=== PATIENT | male | born 1935 | race Caucasian/White ===

== ENCOUNTER 2016-08-30 16:31 | Inpatient (IN) | payer MEDICARE, OTHER ==
[~2016-08-30] VITALS: Ht 165.1 cm; Wt 83.6 kg
[~2016-08-30 16:31] MED LIST: CLOP75 PO; METO25 PO; OMEP20 PO
[2016-08-30 17:37] LABS: BASOPHILS % (AUTO) 0.2 % (0.0-2.0); EOSINOPHILS % (AUTO) 2.9 % (1.0-6.0); HEMATOCRIT 35.6 % (41-53); LYMPHOCYTES # (AUTO) 1.3 K/uL (1.0-4.8); LYMPHOCYTES % (AUTO) 9.2 % (22.0-44.0); MEAN CORPUSCULAR HEMOGLOBIN 31.4 pg (26.0-34.0); MEAN CORPUSCULAR HGB CONC 33.6 G/dL (31.0-37.0); MEAN CORPUSCULAR VOLUME 93 fL (80-100); MONOCYTES # (AUTO) 1.1 K/uL (0.1-1.0); MONOCYTES % (AUTO) 7.8 % (2.0-9.0); NEUTROPHILS # (AUTO) 11.2 K/uL (1.8-7.7); NEUTROPHILS % (AUTO) 79.9 % (40.0-70.0); PLATELET COUNT (AUTO) 249 K/uL (150-450); RED BLOOD CELL COUNT(AUTO) 3.81 MIL/uL (4.50-5.90); RED CELL DISTRIBUTION WIDTH 14.6 % (11.5-14.5)
[2016-08-30 17:49] LABS: CALCIUM, TOTAL 8.8 mg/dL (8.8-10.5); CREATININE 2.34 mg/dL (0.60-1.30); POTASSIUM 5.1 mmol/L (3.5-5.1)
[2016-08-30 17:55] LABS: ALBUMIN 3.7 g/dL (3.4-5.0); BILIRUBIN,TOTAL 1.3 mg/dL (0.1-1.0); TOTAL PROTEIN, SERUM 7.7 g/dL (6.4-8.2)
[2016-08-30] MEDS ORDERED: SODIUM CHLORIDE 0.9% 1,000 ML IV ONE (19:45)
[2016-08-30] MEDS ORDERED: CefTRIAXone 1 GM/DEXTROSE 50 ML IV ONE (19:45)
[2016-08-30] MEDS ORDERED: AZITHROMYCIN 500 MG/NS 250 ML IV ONE (19:45)
[2016-08-30 20:15] LABS: INFLUENZA TYPE B NEGATIVE FOR TYPE B (NEGATIVE)
[2016-08-30] MEDS ORDERED: 0.9% SODIUM CHLORIDE 10 ML SYRINGE IVP PRN (20:30)
[2016-08-30] MEDS ORDERED: ACETAMINOPHEN 325 MG TABLET PO PRN (20:30)
[2016-08-30] MEDS ORDERED: MORPHINE SULFATE 2 MG/ML SYRINGE IVP ONE (20:30)
[2016-08-30] MEDS ORDERED: ONDANSETRON HCL 4 MG/2 ML VIAL IVP PRN (20:30)
[2016-08-31] MEDS ORDERED: OxyCODONE HCL/ACETAMINOPHEN 5-325 MG TABLET PO PRN ×2 (02:45)
[2016-08-31] MEDS ORDERED: ONDANSETRON HCL 4 MG/2 ML VIAL IVP PRN (02:45)
[2016-08-31] MEDS ORDERED: MAGNESIUM HYDROXIDE SUSPENSION 30 ML UDCUP PO PRN (02:45)
[2016-08-31] MEDS ORDERED: ACETAMINOPHEN 325 MG TABLET PO PRN (02:45)
[2016-08-31] MEDS ORDERED: 0.9% SODIUM CHLORIDE 10 ML SYRINGE IVP PRN (02:45)
[2016-08-31] MEDS ORDERED: AZITHROMYCIN 250 MG in SODIUM CHLORIDE 0.9% 150 ML IV ONE (02:45)
[2016-08-31] MEDS: METOPROLOL TARTRATE 25 MG TABLET PO SCH ×3 (03:12→20:11)
[2016-08-31] MEDS: DOCUSATE SODIUM 100 MG CAPSULE PO SCH ×3 (03:12→20:11)
[2016-08-31 08:23] VITALS: BP 143/86
[2016-08-31] MEDS: PANTOPRAZOLE SODIUM 40 MG/VIAL IVP SCH (10:26)
[2016-08-31] MEDS: CLOPIDOGREL BISULFATE 75 MG TABLET PO SCH (10:26)
[2016-08-31 11:10] VITALS: BP 144/66
[2016-08-31] MEDS ORDERED: -PHARMACY VACCINE NOTE- MISC ONE ×2 (12:30)
[2016-08-31 15:24] VITALS: BP 138/71
[2016-08-31] MEDS ORDERED: SODIUM CHLORIDE 0.9% 500 ML IV ONE (15:36)
[2016-08-31] MEDS ORDERED: AZITHROMYCIN 250 MG in SODIUM CHLORIDE 0.9% 150 ML IV SCH (16:00)
[2016-08-31 19:34] VITALS: BP 153/78
[2016-08-31] MEDS ORDERED: CefTRIAXone 1 GM/DEXTROSE 50 ML IV SCH (20:00)
[2016-08-31] MEDS: GuaiFENesin/D-METHORPHAN [SUGAR-FREE] 200-20MG/10 ML SYRUP UDCUP PO PRN (22:38)
[2016-08-31 23:39] VITALS: BP 130/63
[2016-09-01 04:18] VITALS: BP 145/73
[2016-09-01] MEDS: GuaiFENesin/D-METHORPHAN [SUGAR-FREE] 200-20MG/10 ML SYRUP UDCUP PO PRN ×2 (05:44→10:21)
[2016-09-01 06:04] LABS: BASOPHILS % (AUTO) 0.5 % (0.0-2.0); EOSINOPHILS % (AUTO) 4.7 % (1.0-6.0); HEMATOCRIT 35.9 % (41-53); HEMOGLOBIN 11.6 g/dL (13.5-17.5); LYMPHOCYTES # (AUTO) 1.7 K/uL (1.0-4.8); LYMPHOCYTES % (AUTO) 16.8 % (22.0-44.0); MEAN CORPUSCULAR HEMOGLOBIN 30.6 pg (26.0-34.0); MEAN CORPUSCULAR HGB CONC 32.3 G/dL (31.0-37.0); MEAN CORPUSCULAR VOLUME 95 fL (80-100); MONOCYTES # (AUTO) 1.2 K/uL (0.1-1.0); MONOCYTES % (AUTO) 11.4 % (2.0-9.0); NEUTROPHILS # (AUTO) 6.9 K/uL (1.8-7.7); NEUTROPHILS % (AUTO) 66.6 % (40.0-70.0); PLATELET COUNT (AUTO) 242 K/uL (150-450); RED BLOOD CELL COUNT(AUTO) 3.78 MIL/uL (4.50-5.90); RED CELL DISTRIBUTION WIDTH 14.6 % (11.5-14.5); WHITE BLOOD COUNT (AUTO) 10.4 K/uL (4.5-11.0)
[2016-09-01 06:25] LABS: CALCIUM, TOTAL 8.3 mg/dL (8.8-10.5); CREATININE 1.69 mg/dL (0.60-1.30); POTASSIUM 4.6 mmol/L (3.5-5.1)
[2016-09-01 07:43] VITALS: BP 166/72
[2016-09-01] MEDS: CLOPIDOGREL BISULFATE 75 MG TABLET PO SCH (08:31)
[2016-09-01] MEDS: PANTOPRAZOLE SODIUM 40 MG/VIAL IVP SCH (08:31)
[2016-09-01] MEDS: METOPROLOL TARTRATE 25 MG TABLET PO SCH (08:31)
[2016-09-01] MEDS: DOCUSATE SODIUM 100 MG CAPSULE PO SCH (08:31)
[2016-09-01 11:00] VITALS: BP 146/73
[2016-09-01] MEDS ORDERED: LEVO500 PO (14:37)
== END 2016-09-01 15:00 | disposition home or self-care (01) | DRG 871 ==
LOC: EMS 16:39 → 6N 08-31 05:17
PROVIDERS: ADMIT Internal Medicine; ATTEND Internal Medicine
DX: A41.9 Sepsis, unspecified organism (principal); J18.9 Pneumonia, unspecified organism; N17.9 Acute kidney failure, unspecified; E03.9 Hypothyroidism, unspecified; E11.9 Type 2 diabetes mellitus without complications; E78.00 Pure hypercholesterolemia, unspecified; E86.0 Dehydration; J40 Bronchitis, not specified as acute or chronic; I10 Essential (primary) hypertension; I25.10 Atherosclerotic heart disease of native coronary artery without angina pectoris; R62.7 Adult failure to thrive; Z82.49 Family history of ischemic heart disease and other diseases of the circulatory system; Z83.3 Family history of diabetes mellitus; Z79.01 Long term (current) use of anticoagulants; Z79.899 Other long term (current) drug therapy; Z95.5 Presence of coronary angioplasty implant and graft
CPT/HCPCS: 71250; 87040; 87804; 93005; 96365; 96368; 96375; 99285; C9113; J0456; J0696; J2270; J7030; J7040; J7050

== ENCOUNTER 2017-05-26 08:47 | Inpatient (IN) | payer MEDICARE, OTHER ==
[~2017-05-26] VITALS: Ht 165.1 cm; Wt 86.0 kg
[~2017-05-26 08:47] MED LIST changes: +LEVO500 PO
[2017-05-26] MEDS ORDERED: SODIUM CHLORIDE 0.9% 1,000 ML IV ONE ×3 (09:30→12:45)
[2017-05-26 09:43] LABS: EOSINOPHILS # (AUTO) 0.07 K/uL (0.00-0.70); EOSINOPHILS % (AUTO) 0.42 % (1.0-6.0); HEMATOCRIT 33.9 % (41-53); HEMOGLOBIN 11.2 g/dL (13.5-17.5); LYMPHOCYTES # (AUTO) 0.9 K/uL (1.0-4.8); LYMPHOCYTES % (AUTO) 5.4 % (22.0-44.0); MEAN CORPUSCULAR HGB CONC 33.1 G/dL (31.0-37.0); MEAN CORPUSCULAR VOLUME 94 fL (80-100); MONOCYTES # (AUTO) 1.2 K/uL (0.1-1.0); NEUTROPHILS # (AUTO) 15.4 K/uL (1.8-7.7); PLATELET COUNT (AUTO) 168 K/uL (150-450); RED BLOOD CELL COUNT(AUTO) 3.61 MIL/uL (4.50-5.90); WHITE BLOOD COUNT (AUTO) 17.6 K/uL (4.5-11.0)
[2017-05-26 09:51] LABS: NEUTROPHILS % (AUTO) 87.3 % (40.0-70.0)
[2017-05-26 09:54] LABS: CALCIUM, TOTAL 8.4 mg/dL (8.8-10.5); CREATININE 2.17 mg/dL (0.60-1.30); POTASSIUM 4.2 mmol/L (3.5-5.1)
[2017-05-26 10:00] LABS: ALBUMIN 3.4 g/dL (3.4-5.0); BILIRUBIN,TOTAL 1.6 mg/dL (0.1-1.0); TOTAL PROTEIN, SERUM 6.8 g/dL (6.4-8.2)
[2017-05-26] MEDS ORDERED: CefTRIAXone 1 GM/DEXTROSE 50 ML IV ONE (12:15)
[2017-05-26 12:37] LABS: GLUCOSE, URINE (UA) >=1000 mg/dL (NEGATIVE); KETONES,URINE NEGATIVE (NEGATIVE); LEUKOCYTE ESTERASE ,URINE TRACE (NEGATIVE); OCCULT BLOOD,URINE NEGATIVE (NEGATIVE); PROTEIN,URINE NEGATIVE (NEGATIVE)
[2017-05-26 12:44] LABS: APPEARANCE,URINE HAZY (CLEAR)
[2017-05-26] MEDS ORDERED: ONDANSETRON HCL 4 MG/2 ML VIAL IVP PRN ×2 (12:45→22:30)
[2017-05-26] MEDS ORDERED: ACETAMINOPHEN 325 MG TABLET PO PRN (12:45)
[2017-05-26 12:52] LABS: RBC,URINE 0-2 /HPF (0-2); SQUAMOUS EPITHELIAL CELL,UR Few /LPF (None Seen)
[2017-05-26 13:38] LABS: GLUCOSE,POINT OF CARE 204 MG/DL (70-110)
[2017-05-26 14:21] VITALS: BP 140/78
[2017-05-26 17:22] LABS: GLUCOSE COMMENT 1 Received Meds; GLUCOSE,POINT OF CARE 212 MG/DL (70-110)
[2017-05-26 19:31] VITALS: BP 177/76
[2017-05-26 20:53] VITALS: BP 154/77
[2017-05-26] MEDS: METOPROLOL TARTRATE 25 MG TABLET PO SCH (21:16)
[2017-05-26] MEDS: CLOPIDOGREL BISULFATE 75 MG TABLET PO SCH (21:16)
[2017-05-26 21:27] LABS: GLUCOSE,POINT OF CARE 217 MG/DL (70-110)
[2017-05-26] MEDS ORDERED: OxyCODONE HCL/ACETAMINOPHEN 5-325 MG TABLET PO PRN ×2 (22:30)
[2017-05-26] MEDS ORDERED: 0.9% SODIUM CHLORIDE 10 ML SYRINGE IVP PRN (22:30)
[2017-05-26] MEDS ORDERED: DEXTROSE 50%-WATER 25 GM/50 ML SYRINGE IVP PRN (22:45)
[2017-05-26 23:29] VITALS: BP 158/74
[2017-05-26] MEDS: DOCUSATE SODIUM 100 MG CAPSULE PO SCH (23:39)
[2017-05-26] MEDS: INSULIN ASPART 100 UNITS/ML SQ PRN (23:40)
[2017-05-27 04:51] VITALS: BP 173/73
[2017-05-27] MEDS: METOPROLOL TARTRATE 25 MG TABLET PO SCH ×2 (05:22→19:53)
[2017-05-27 06:18] LABS: GLUCOSE,POINT OF CARE 132 MG/DL (70-110)
[2017-05-27 07:04] LABS: BASOPHILS % (AUTO) 0.4 % (0.0-2.0); EOSINOPHILS % (AUTO) 1.5 % (1.0-6.0); HEMATOCRIT 33.5 % (41-53); HEMOGLOBIN 11.4 g/dL (13.5-17.5); LYMPHOCYTES # (AUTO) 1.6 K/uL (1.0-4.8); LYMPHOCYTES % (AUTO) 10.6 % (22.0-44.0); MEAN CORPUSCULAR HEMOGLOBIN 31.7 pg (26.0-34.0); MEAN CORPUSCULAR VOLUME 93 fL (80-100); MONOCYTES # (AUTO) 1.4 K/uL (0.1-1.0); MONOCYTES % (AUTO) 9.5 % (2.0-9.0); NEUTROPHILS # (AUTO) 11.8 K/uL (1.8-7.7); PLATELET COUNT (AUTO) 171 K/uL (150-450); RED BLOOD CELL COUNT(AUTO) 3.59 MIL/uL (4.50-5.90); RED CELL DISTRIBUTION WIDTH 14.2 % (11.5-14.5); WHITE BLOOD COUNT (AUTO) 15.2 K/uL (4.5-11.0)
[2017-05-27 07:21] VITALS: BP 155/73
[2017-05-27 07:23] LABS: CALCIUM, TOTAL 7.9 mg/dL (8.8-10.5); CREATININE 1.52 mg/dL (0.60-1.30); POTASSIUM 3.7 mmol/L (3.5-5.1)
[2017-05-27] MEDS: CLOPIDOGREL BISULFATE 75 MG TABLET PO SCH (08:34)
[2017-05-27] MEDS: DOCUSATE SODIUM 100 MG CAPSULE PO SCH ×2 (08:34→19:53)
[2017-05-27] MEDS: PANTOPRAZOLE SODIUM 40 MG/VIAL IVP SCH (08:34)
[2017-05-27 11:03] LABS: GLUCOSE COMMENT 1 Received Meds; GLUCOSE,POINT OF CARE 234 MG/DL (70-110)
[2017-05-27 11:27] VITALS: BP 167/72
[2017-05-27] MEDS ORDERED: HydrALAZINE HCL 20 MG/ML VIAL IVP PRN (11:45)
[2017-05-27] MEDS: CefTRIAXone 1 GM/DEXTROSE 50 ML IV SCH (11:50)
[2017-05-27] MEDS: INSULIN ASPART 100 UNITS/ML SQ PRN ×3 (11:54→19:55)
[2017-05-27] MEDS: HydrALAZINE HCL 10 MG TABLET PO PRN ×3 (12:26→23:00)
[2017-05-27 15:13] VITALS: BP 157/75
[2017-05-27 19:30] VITALS: BP 151/72
[2017-05-27 20:59] LABS: GLUCOSE,POINT OF CARE 191 MG/DL (70-110)
[2017-05-27 22:35] LABS: GLUCOSE COMMENT 1 Received Meds; GLUCOSE,POINT OF CARE 232 MG/DL (70-110)
[2017-05-27 23:01] VITALS: BP 152/71
[2017-05-28 04:51] VITALS: BP 167/76
[2017-05-28] MEDS: HydrALAZINE HCL 10 MG TABLET PO PRN ×3 (04:53→12:50)
[2017-05-28] MEDS: INSULIN ASPART 100 UNITS/ML SQ PRN ×4 (05:39→21:11)
[2017-05-28 06:51] LABS: GLUCOSE COMMENT 1 Received Meds; GLUCOSE,POINT OF CARE 172 MG/DL (70-110)
[2017-05-28 07:09] VITALS: BP 190/83
[2017-05-28] MEDS: PANTOPRAZOLE SODIUM 40 MG/VIAL IVP SCH (09:11)
[2017-05-28] MEDS: CLOPIDOGREL BISULFATE 75 MG TABLET PO SCH (09:11)
[2017-05-28] MEDS: DOCUSATE SODIUM 100 MG CAPSULE PO SCH ×2 (09:11→20:02)
[2017-05-28] MEDS: METOPROLOL TARTRATE 25 MG TABLET PO SCH ×2 (09:11→20:02)
[2017-05-28 11:10] VITALS: BP 177/76
[2017-05-28] MEDS: CefTRIAXone 1 GM/DEXTROSE 50 ML IV SCH (12:47)
[2017-05-28 14:28] LABS: GLUCOSE COMMENT 1 Received Meds; GLUCOSE,POINT OF CARE 257 MG/DL (70-110)
[2017-05-28 15:10] VITALS: BP 166/72
[2017-05-28] MEDS: LOSARTAN POTASSIUM 50 MG TABLET PO SCH (16:46)
[2017-05-28 18:38] LABS: GLUCOSE COMMENT 1 Received Meds; GLUCOSE,POINT OF CARE 326 MG/DL (70-110)
[2017-05-28 19:10] VITALS: BP 147/70
[2017-05-28 23:34] VITALS: BP 145/65
[2017-05-29 01:07] LABS: GLUCOSE COMMENT 1 Juice/Food/D50 Given; GLUCOSE,POINT OF CARE 325 MG/DL (70-110)
[2017-05-29 04:00] VITALS: BP 162/71
[2017-05-29] MEDS: HydrALAZINE HCL 10 MG TABLET PO PRN ×3 (04:09→16:18)
[2017-05-29] MEDS: INSULIN ASPART 100 UNITS/ML SQ PRN ×3 (05:21→16:48)
[2017-05-29 06:32] LABS: GLUCOSE COMMENT 1 Juice/Food/D50 Given; GLUCOSE,POINT OF CARE 203 MG/DL (70-110)
[2017-05-29 07:33] LABS: BASOPHILS % (AUTO) 0.6 % (0.0-2.0); HEMATOCRIT 33.8 % (41-53); HEMOGLOBIN 11.4 g/dL (13.5-17.5); LYMPHOCYTES # (AUTO) 1.5 K/uL (1.0-4.8); LYMPHOCYTES % (AUTO) 16.6 % (22.0-44.0); MEAN CORPUSCULAR HEMOGLOBIN 31.4 pg (26.0-34.0); MEAN CORPUSCULAR HGB CONC 33.8 G/dL (31.0-37.0); MEAN CORPUSCULAR VOLUME 93 fL (80-100); MONOCYTES % (AUTO) 11.2 % (2.0-9.0); NEUTROPHILS # (AUTO) 6.2 K/uL (1.8-7.7); NEUTROPHILS % (AUTO) 68.6 % (40.0-70.0); PLATELET COUNT (AUTO) 209 K/uL (150-450); RED BLOOD CELL COUNT(AUTO) 3.64 MIL/uL (4.50-5.90); RED CELL DISTRIBUTION WIDTH 13.9 % (11.5-14.5)
[2017-05-29 07:47] LABS: CALCIUM, TOTAL 8.2 mg/dL (8.8-10.5); CREATININE 1.62 mg/dL (0.60-1.30); POTASSIUM 4.2 mmol/L (3.5-5.1)
[2017-05-29 08:00] VITALS: BP 178/87
[2017-05-29] MEDS: PANTOPRAZOLE SODIUM 40 MG/VIAL IVP SCH (08:18)
[2017-05-29] MEDS: LOSARTAN POTASSIUM 50 MG TABLET PO SCH (08:18)
[2017-05-29] MEDS: METOPROLOL TARTRATE 25 MG TABLET PO SCH (08:18)
[2017-05-29] MEDS: DOCUSATE SODIUM 100 MG CAPSULE PO SCH (08:18)
[2017-05-29] MEDS: CLOPIDOGREL BISULFATE 75 MG TABLET PO SCH (08:22)
[2017-05-29 11:02] LABS: GLUCOSE COMMENT 1 Received Meds; GLUCOSE,POINT OF CARE 239 MG/DL (70-110)
[2017-05-29 11:31] VITALS: BP 173/75
[2017-05-29] MEDS: CefTRIAXone 1 GM/DEXTROSE 50 ML IV SCH (12:28)
[2017-05-29] MEDS ORDERED: CEPH500 PO (13:47)
[2017-05-29] MEDS ORDERED: LOSA50TA37 PO (13:47)
[2017-05-29] MEDS ORDERED: DSS100 PO (13:51)
[2017-05-29 15:45] VITALS: BP 158/79
[2017-05-29 16:53] LABS: GLUCOSE,POINT OF CARE 271 MG/DL (70-110)
== END 2017-05-29 17:07 | disposition home health service (06) | DRG 872 ==
LOC: EMS 08:52 → 6N 13:55
PROVIDERS: ADMIT Internal Medicine; ATTEND Internal Medicine
DX: A41.9 Sepsis, unspecified organism (principal); N17.9 Acute kidney failure, unspecified; E11.65 Type 2 diabetes mellitus with hyperglycemia; E87.1 Hypo-osmolality and hyponatremia; E86.0 Dehydration; N39.0 Urinary tract infection, site not specified; I10 Essential (primary) hypertension; K59.00 Constipation, unspecified; I25.10 Atherosclerotic heart disease of native coronary artery without angina pectoris; E78.00 Pure hypercholesterolemia, unspecified; E03.9 Hypothyroidism, unspecified; Z79.01 Long term (current) use of anticoagulants; Z79.899 Other long term (current) drug therapy
CPT/HCPCS: 82962; 87086; 96361; 96365; 97116; 97162; 99285; C9113; J0696; J7030

== ENCOUNTER 2017-08-13 19:50 | Inpatient (IN) | payer MEDICARE, OTHER ==
[~2017-08-13] VITALS: Ht 170.2 cm; Wt 84.0 kg
[~2017-08-13 19:50] MED LIST changes: +CEPH500 PO; +DSS100 PO; -LEVO500 PO; +LOSA50TA37 PO; -METO25 PO
[2017-08-13 21:48] LABS: GLUCOSE,POINT OF CARE 138 MG/DL (70-110)
[2017-08-13] MEDS ORDERED: CefTRIAXone 1 GM/DEXTROSE 50 ML IV ONE (23:15)
[2017-08-13] MEDS ORDERED: MethylPREDNISolone SOD SUCC 125 MG/2 ML VIAL IVP ONE (23:15)
[2017-08-13] MEDS ORDERED: ACETAMINOPHEN 500 MG TABLET PO ONE (23:15)
[2017-08-13] MEDS ORDERED: OSELTAMIVIR PHOSPHATE 75 MG CAPSULE PO ONE (23:15)
[2017-08-13] MEDS ORDERED: IPRATROPIUM BROMIDE 0.5 MG/2.5 ML NEB SOLUTION NEB ONE (23:15)
[2017-08-13] MEDS ORDERED: ALBUTEROL SULFATE 2.5 MG/0.5 ML NEB SOLUTION NEB ONE (23:15)
[2017-08-13] MEDS ORDERED: ACETAMINOPHEN 325 MG TABLET PO PRN (23:45)
[2017-08-13] MEDS ORDERED: 0.9% SODIUM CHLORIDE 10 ML SYRINGE IVP PRN (23:45)
[2017-08-13] MEDS ORDERED: ONDANSETRON HCL 4 MG/2 ML VIAL IVP PRN (23:45)
[2017-08-13 23:51] LABS: BASOPHILS # (AUTO) 0.04 K/uL (0.00-0.20); BASOPHILS % (AUTO) 0.6 % (0.0-2.0); EOSINOPHILS # (AUTO) 0.19 K/uL (0.00-0.70); EOSINOPHILS % (AUTO) 2.47 % (1.0-6.0); HEMATOCRIT 34.2 % (41-53); HEMOGLOBIN 11.6 g/dL (13.5-17.5); LYMPHOCYTES # (AUTO) 1.9 K/uL (1.0-4.8); LYMPHOCYTES % (AUTO) 24.6 % (22.0-44.0); MEAN CORPUSCULAR HEMOGLOBIN 30.6 pg (26.0-34.0); MEAN CORPUSCULAR HGB CONC 33.9 G/dL (31.0-37.0); MEAN CORPUSCULAR VOLUME 90 fL (80-100); MONOCYTES # (AUTO) 0.9 K/uL (0.1-1.0); NEUTROPHILS # (AUTO) 4.7 K/uL (1.8-7.7); NEUTROPHILS % (AUTO) 60.4 % (40.0-70.0); PLATELET COUNT (AUTO) 204 K/uL (150-450); RED CELL DISTRIBUTION WIDTH 13.8 % (11.5-14.5)
[2017-08-13 23:54] LABS: CALCIUM, TOTAL 8.6 mg/dL (8.8-10.5); CREATININE 1.85 mg/dL (0.60-1.30); POTASSIUM 4.1 mmol/L (3.5-5.1)
[2017-08-13 23:58] LABS: INFLUENZA TYPE A NEGATIVE FOR TYPE A (NEGATIVE); INFLUENZA TYPE B NEGATIVE FOR TYPE B (NEGATIVE)
[2017-08-14] VITALS (7 sets, daily range): BP systolic 145–187; BP diastolic 77–89
[2017-08-14] LABS: ALBUMIN 3.6 g/dL (3.4-5.0); BILIRUBIN,TOTAL 0.8 mg/dL (0.1-1.0); TOTAL PROTEIN, SERUM 7.2 g/dL (6.4-8.2)
[2017-08-14 00:02] LABS: LACTIC ACID 1.5 mmol/L (0.4-2.0)
[2017-08-14] MEDS ORDERED: IPRATROPIUM BROMIDE 0.5 MG/2.5 ML NEB SOLUTION NEB SCH (03:00)
[2017-08-14] MEDS ORDERED: ALBUTEROL SULFATE 2.5 MG/0.5 ML NEB SOLUTION NEB SCH (03:00)
[2017-08-14] MEDS ORDERED: ONDANSETRON HCL 4 MG/2 ML VIAL IVP PRN (06:45)
[2017-08-14] MEDS ORDERED: OxyCODONE HCL/ACETAMINOPHEN 5-325 MG TABLET PO PRN ×2 (06:45)
[2017-08-14] MEDS ORDERED: 0.9% SODIUM CHLORIDE 10 ML SYRINGE IVP PRN (06:45)
[2017-08-14] MEDS: CLOPIDOGREL BISULFATE 75 MG TABLET PO SCH (07:55)
[2017-08-14] MEDS: PANTOPRAZOLE SODIUM 40 MG DR TABLET PO SCH (07:55)
[2017-08-14] MEDS: DOCUSATE SODIUM 100 MG CAPSULE PO SCH ×2 (07:55→19:59)
[2017-08-14] MEDS: SODIUM CHLORIDE 0.9% 1,000 ML IV SCH ×2 (07:56→19:53)
[2017-08-14] MEDS: LOSARTAN POTASSIUM 50 MG TABLET PO SCH ×2 (07:56→19:59)
[2017-08-14] MEDS ORDERED: DOCUSATE SODIUM 100 MG CAPSULE PO SCH (09:00)
[2017-08-14 15:23] LABS: BILIRUBIN,URINE NEGATIVE (NEGATIVE); GLUCOSE, URINE (UA) >=1000 mg/dL (NEGATIVE); KETONES,URINE TRACE mg/dL (NEGATIVE); LEUKOCYTE ESTERASE ,URINE LARGE (NEGATIVE); NITRATE,URINE POSITIVE (NEGATIVE); OCCULT BLOOD,URINE NEGATIVE (NEGATIVE); PROTEIN,URINE NEGATIVE (NEGATIVE); UROBILINOGEN,URINE 0.2 mg/dL (<=1.0)
[2017-08-14 15:29] LABS: APPEARANCE,URINE HAZY (CLEAR)
[2017-08-14 15:34] LABS: BACTERIA,URINE Moderate /HPF (None Seen); SQUAMOUS EPITHELIAL CELL,UR Many /LPF (None Seen)
[2017-08-14] MEDS ORDERED: SODIUM CHLORIDE 0.9% 500 ML IV ONE (19:44)
[2017-08-14] MEDS: AZITHROMYCIN 500 MG/NS 250 ML IV SCH (19:53)
[2017-08-14] MEDS: HydrALAZINE HCL 25 MG TABLET PO SCH (19:59)
[2017-08-15] MEDS ORDERED: NIFEdipine 30 MG ER TABLET PO ONE (00:15)
[2017-08-15] MEDS: GuaiFENesin/D-METHORPHAN [SUGAR-FREE] 200-20MG/10 ML SYRUP UDCUP PO PRN ×2 (00:33→08:39)
[2017-08-15 05:27] VITALS: BP 154/63
[2017-08-15] MEDS: SODIUM CHLORIDE 0.9% 1,000 ML IV SCH (05:48)
[2017-08-15 06:44] LABS: BASOPHILS % (AUTO) 0.2 % (0.0-2.0); EOSINOPHILS % (AUTO) 0.1 % (1.0-6.0); HEMATOCRIT 31.6 % (41-53); HEMOGLOBIN 10.8 g/dL (13.5-17.5); LYMPHOCYTES # (AUTO) 1.2 K/uL (1.0-4.8); LYMPHOCYTES % (AUTO) 12.9 % (22.0-44.0); MEAN CORPUSCULAR HGB CONC 34.1 G/dL (31.0-37.0); MEAN CORPUSCULAR VOLUME 91 fL (80-100); MONOCYTES # (AUTO) 0.8 K/uL (0.1-1.0); MONOCYTES % (AUTO) 8.4 % (2.0-9.0); NEUTROPHILS # (AUTO) 7.3 K/uL (1.8-7.7); NEUTROPHILS % (AUTO) 78.4 % (40.0-70.0); PLATELET COUNT (AUTO) 183 K/uL (150-450); RED BLOOD CELL COUNT(AUTO) 3.47 MIL/uL (4.50-5.90)
[2017-08-15 06:55] LABS: CREATININE 1.54 mg/dL (0.60-1.30); POTASSIUM 4.3 mmol/L (3.5-5.1)
[2017-08-15 07:40] VITALS: BP 145/100
[2017-08-15 08:36] VITALS: BP 149/62
[2017-08-15] MEDS: LOSARTAN POTASSIUM 50 MG TABLET PO SCH (08:39)
[2017-08-15] MEDS: CLOPIDOGREL BISULFATE 75 MG TABLET PO SCH (08:40)
[2017-08-15] MEDS: PANTOPRAZOLE SODIUM 40 MG DR TABLET PO SCH (08:40)
[2017-08-15] MEDS: DOCUSATE SODIUM 100 MG CAPSULE PO SCH (08:40)
[2017-08-15] MEDS: HydrALAZINE HCL 25 MG TABLET PO SCH (08:42)
[2017-08-15] MEDS ORDERED: NIFEdipine 30 MG ER TABLET PO SCH (09:00)
[2017-08-15 12:00] VITALS: BP 145/62
[2017-08-15] MEDS: AZITHROMYCIN 500 MG/NS 250 ML IV SCH (12:13)
[2017-08-15] MEDS ORDERED: HYDR25TA84 PO (13:05)
[2017-08-15] MEDS ORDERED: OSEL75 PO (13:05)
[2017-08-15] MEDS ORDERED: NIFE10CA PO (13:07)
[2017-08-15] MEDS ORDERED: LEVO250 PO (13:10)
[2017-08-15 15:29] VITALS: BP 126/61
[2017-08-15] MEDS ORDERED: GUAIF10 PO (15:30)
== END 2017-08-15 16:08 | disposition home or self-care (01) | DRG 689 ==
LOC: EMS 19:51 → 6N 23:30
PROVIDERS: ADMIT Internal Medicine; ATTEND Internal Medicine
DX: N39.0 Urinary tract infection, site not specified (principal); J18.0 Bronchopneumonia, unspecified organism; E11.22 Type 2 diabetes mellitus with diabetic chronic kidney disease; E05.90 Thyrotoxicosis, unspecified without thyrotoxic crisis or storm; D64.9 Anemia, unspecified; E03.9 Hypothyroidism, unspecified; E78.00 Pure hypercholesterolemia, unspecified; I25.10 Atherosclerotic heart disease of native coronary artery without angina pectoris; I12.9 Hypertensive chronic kidney disease with stage 1 through stage 4 chronic kidney disease, or unspecified chronic kidney disease; N18.9 Chronic kidney disease, unspecified; Z82.5 Family history of asthma and other chronic lower respiratory diseases; Z95.5 Presence of coronary angioplasty implant and graft; Z79.899 Other long term (current) drug therapy; Z79.01 Long term (current) use of anticoagulants; Z82.49 Family history of ischemic heart disease and other diseases of the circulatory system
CPT/HCPCS: 82962; 83605; 87040; 87086; 87804; 93005; 94640; 96365; 96375; 99285; J0456; J0696; J2930; J7030; J7040

== ENCOUNTER 2019-05-17 08:24 | Inpatient (IN) | payer MEDICARE, OTHER ==
[~2019-05-17] VITALS: Ht 165.1 cm; Wt 81.6 kg
[~2019-05-17 08:24] MED LIST changes: -CEPH500 PO; -CLOP75 PO; +CLOP75TA3 PO; +GUAIF10 PO; +HYDR25TA84 PO; +LEVO250 PO; -LOSA50TA37 PO; +LOSA50TA64 PO; +NIFE10CA PO; +OSEL75 PO
[2019-05-17 09:26] LABS: GLUCOSE,POINT OF CARE 165 MG/DL (70-110)
[2019-05-17 10:10] LABS: BASOPHILS % (AUTO) 0.5 % (0.0-2.0); EOSINOPHILS % (AUTO) 0.4 % (1.0-6.0); HEMATOCRIT 34.5 % (41-53); HEMOGLOBIN 11.3 g/dL (13.5-17.5); LYMPHOCYTES # (AUTO) 0.8 K/uL (1.0-4.8); LYMPHOCYTES % (AUTO) 5.3 % (22.0-44.0); MEAN CORPUSCULAR HEMOGLOBIN 30.8 pg (26.0-34.0); MEAN CORPUSCULAR HGB CONC 32.6 G/dL (31.0-37.0); MEAN CORPUSCULAR VOLUME 94 fL (80-100); MONOCYTES # (AUTO) 0.9 K/uL (0.1-1.0); MONOCYTES % (AUTO) 5.9 % (2.0-9.0); PLATELET COUNT (AUTO) 204 K/uL (150-450); RED BLOOD CELL COUNT(AUTO) 3.66 MIL/uL (4.50-5.90); RED CELL DISTRIBUTION WIDTH 14.1 % (11.5-14.5)
[2019-05-17 10:15] LABS: NEUTROPHILS % (AUTO) 87.9 % (40.0-70.0)
[2019-05-17 10:19] LABS: CALCIUM, TOTAL 8.8 mg/dL (8.8-10.5); CREATININE 1.96 mg/dL (0.60-1.30); POTASSIUM 5.3 mmol/L (3.5-5.1)
[2019-05-17 10:24] LABS: INR 1.1 (0.9-1.1); PROTHROMBIN TIME 10.7 SEC (9.4-11.6)
[2019-05-17 10:26] LABS: ALBUMIN 3.3 g/dL (3.4-5.0); BILIRUBIN,TOTAL 0.9 mg/dL (0.1-1.0); TOTAL PROTEIN, SERUM 7.1 g/dL (6.4-8.2)
[2019-05-17 11:05] LABS: APPEARANCE,URINE CLEAR (CLEAR); BILIRUBIN,URINE NEGATIVE (NEGATIVE); GLUCOSE, URINE (UA) NEGATIVE (NEGATIVE); KETONES,URINE NEGATIVE (NEGATIVE); LEUKOCYTE ESTERASE ,URINE NEGATIVE (NEGATIVE); NITRATE,URINE NEGATIVE (NEGATIVE); OCCULT BLOOD,URINE NEGATIVE (NEGATIVE); PROTEIN,URINE NEGATIVE (NEGATIVE); UROBILINOGEN,URINE 0.2 mg/dL (<=1.0)
[2019-05-17] MEDS ORDERED: SODIUM CHLORIDE 0.9% 1,000 ML IV ONE (11:30)
[2019-05-17] MEDS ORDERED: CefTRIAXone 1 GM/DEXTROSE 50 ML IV ONE (11:30)
[2019-05-17] MEDS ORDERED: VANCOMYCIN HCL 1 GM/D5% WATER 200 ML IV ONE (11:30)
[2019-05-17] MEDS ORDERED: ONDANSETRON HCL 4 MG/2 ML VIAL IVP PRN ×2 (12:45→21:45)
[2019-05-17] MEDS ORDERED: 0.9% SODIUM CHLORIDE 10 ML SYRINGE IVP PRN (12:45)
[2019-05-17] MEDS ORDERED: ACETAMINOPHEN 325 MG TABLET PO PRN ×3 (12:45→21:45)
[2019-05-17] MEDS ORDERED: POVIDONE-IODINE 10% 120 ML SOLUTION TP ONE (12:45)
[2019-05-17] MEDS ORDERED: LIDOCAINE 1% 10 ML VIAL INJ ONE (12:45)
[2019-05-17] MEDS ORDERED: LORazepam 2 MG/ML VIAL IVP ONE (12:45)
[2019-05-17 13:03] LABS: SPECIMENTYPE,BODY FLUID SYNOVIAL
[2019-05-17 13:47] LABS: CRYSTALS, SYNOVIAL FLUID Ca Phyrophos - Few (None Seen)
[2019-05-17 13:51] LABS: APPEARANCE,SPUN,BODY FLUID HAZY (CLEAR); APPEARANCE,UNSPUN,BODY FLUID CLOUDY (CLEAR)
[2019-05-17 13:52] LABS: COLOR,BODY FLUID YELLOW (LT YELLOW); TOTAL VOLUME,BODY FLUID 2 mL; WBC, BODY FLUID 25475 /cu. mm.
[2019-05-17 13:56] LABS: BASOPHILS,BODY FLUID 0 %; EOSINOPHILS,BF (ANAL) 0 %; LYMPHOCYTES,BODY FLUID 6 %; MONOCYTES,BODY FLUID 15 %; NEUTROPHILS,BODY FLUID 79 %
[2019-05-17 16:11] VITALS: BP 190/89
[2019-05-17] MEDS: NIFEdipine 30 MG ER TABLET PO SCH (16:11)
[2019-05-17] MEDS: HydrALAZINE HCL 25 MG TABLET PO SCH ×2 (16:11→22:03)
[2019-05-17 17:11] VITALS: BP 196/84
[2019-05-17] MEDS ORDERED: CloNIDine HCL 0.1 MG TABLET PO PRN (17:45)
[2019-05-17] MEDS: LOSARTAN POTASSIUM 50 MG TABLET PO SCH (17:49)
[2019-05-17 18:20] VITALS: BP 182/89
[2019-05-17 19:35] VITALS: BP 162/80
[2019-05-17] MEDS ORDERED: GuaiFENesin [SUGAR-FREE] 200 MG/10 ML SOLUTION UDCUP PO PRN (21:45)
[2019-05-17] MEDS ORDERED: ALBUTEROL SULFATE 2.5 MG/0.5 ML NEB SOLUTION NEB PRN (21:45)
[2019-05-17] MEDS ORDERED: ZOLPIDEM TARTRATE 5 MG TABLET PO PRN (21:45)
[2019-05-17] MEDS ORDERED: IPRATROPIUM BROMIDE 0.5 MG/2.5 ML NEB SOLUTION NEB PRN (21:45)
[2019-05-17] MEDS ORDERED: MAGNESIUM HYDROXIDE SUSPENSION 30 ML UDCUP PO PRN (21:45)
[2019-05-17] MEDS ORDERED: BISACODYL 10 MG RECTAL RECTAL SUPPOSITORY PR PRN (21:45)
[2019-05-18 00:01] VITALS: BP 146/69
[2019-05-18] MEDS: HEPARIN SODIUM,PORCINE 5,000 UNITS/ML VIAL SQ SCH ×4 (00:31→23:37)
[2019-05-18 04:45] VITALS: BP 144/66
[2019-05-18] MEDS: MORPHINE SULFATE 2 MG/ML SYRINGE IVP PRN (05:12)
[2019-05-18 06:44] LABS: BASOPHILS % (AUTO) 0.4 % (0.0-2.0); EOSINOPHILS % (AUTO) 1.3 % (1.0-6.0); HEMATOCRIT 33.9 % (41-53); HEMOGLOBIN 11.3 g/dL (13.5-17.5); LYMPHOCYTES # (AUTO) 1.1 K/uL (1.0-4.8); LYMPHOCYTES % (AUTO) 10.3 % (22.0-44.0); MEAN CORPUSCULAR HEMOGLOBIN 31.6 pg (26.0-34.0); MEAN CORPUSCULAR HGB CONC 33.5 G/dL (31.0-37.0); MEAN CORPUSCULAR VOLUME 94 fL (80-100); MONOCYTES # (AUTO) 1.1 K/uL (0.1-1.0); MONOCYTES % (AUTO) 9.7 % (2.0-9.0); NEUTROPHILS # (AUTO) 8.7 K/uL (1.8-7.7); NEUTROPHILS % (AUTO) 78.3 % (40.0-70.0); PLATELET COUNT (AUTO) 191 K/uL (150-450); RED BLOOD CELL COUNT(AUTO) 3.59 MIL/uL (4.50-5.90); RED CELL DISTRIBUTION WIDTH 14.1 % (11.5-14.5)
[2019-05-18 07:03] LABS: ALBUMIN 3.1 g/dL (3.4-5.0); CALCIUM, TOTAL 8.7 mg/dL (8.8-10.5); CREATININE 1.75 mg/dL (0.60-1.30); POTASSIUM 4.7 mmol/L (3.5-5.1); TOTAL PROTEIN, SERUM 6.5 g/dL (6.4-8.2)
[2019-05-18 07:31] VITALS: BP 147/68
[2019-05-18] MEDS: HYDROCODONE/ACETAMINOPHEN 5-325 MG TABLET PO PRN ×3 (08:22→20:39)
[2019-05-18] MEDS: LOSARTAN POTASSIUM 50 MG TABLET PO SCH (08:23)
[2019-05-18] MEDS: DOCUSATE SODIUM 100 MG CAPSULE PO SCH (08:23)
[2019-05-18] MEDS: CLOPIDOGREL BISULFATE 75 MG TABLET PO SCH (08:23)
[2019-05-18] MEDS: NIFEdipine 30 MG ER TABLET PO SCH (08:23)
[2019-05-18] MEDS: HydrALAZINE HCL 25 MG TABLET PO SCH ×3 (08:24→20:39)
[2019-05-18] MEDS ORDERED: DOCUSATE SODIUM 100 MG CAPSULE PO SCH (09:00)
[2019-05-18] MEDS ORDERED: OMEPRAZOLE 20 MG CAPSULE PO SCH (09:00)
[2019-05-18] MEDS ORDERED: LOSARTAN POTASSIUM 50 MG TABLET PO SCH (09:00)
[2019-05-18] MEDS: CefTRIAXone 1 GM/DEXTROSE 50 ML IV SCH (10:59)
[2019-05-18 11:30] VITALS: BP 132/63
[2019-05-18 15:33] VITALS: BP 132/64
[2019-05-18] MEDS: PANTOPRAZOLE SODIUM 40 MG DR TABLET PO SCH (16:20)
[2019-05-18] MEDS ORDERED: PredniSONE 20 MG TABLET PO ONE (17:00)
[2019-05-18 20:08] VITALS: BP 134/73
[2019-05-18] MEDS: COLCHICINE 0.6 MG TABLET PO SCH (20:39)
[2019-05-19] VITALS (7 sets, daily range): BP systolic 129–148; BP diastolic 65–83
[2019-05-19 06:33] LABS: BASOPHILS % (AUTO) 1.2 % (0.0-2.0); EOSINOPHILS % (AUTO) 0 % (1.0-6.0); HEMATOCRIT 35.6 % (41-53); HEMOGLOBIN 11.8 g/dL (13.5-17.5); LYMPHOCYTES # (AUTO) 0.7 K/uL (1.0-4.8); LYMPHOCYTES % (AUTO) 6.7 % (22.0-44.0); MEAN CORPUSCULAR HEMOGLOBIN 31.1 pg (26.0-34.0); MEAN CORPUSCULAR HGB CONC 33.1 G/dL (31.0-37.0); MEAN CORPUSCULAR VOLUME 94 fL (80-100); MONOCYTES # (AUTO) 0.2 K/uL (0.1-1.0); NEUTROPHILS # (AUTO) 9.7 K/uL (1.8-7.7); PLATELET COUNT (AUTO) 217 K/uL (150-450); RED BLOOD CELL COUNT(AUTO) 3.79 MIL/uL (4.50-5.90); RED CELL DISTRIBUTION WIDTH 13.9 % (11.5-14.5)
[2019-05-19 06:36] LABS: NEUTROPHILS % (AUTO) 90.1 % (40.0-70.0)
[2019-05-19 06:52] LABS: BILIRUBIN,TOTAL 0.5 mg/dL (0.1-1.0); CALCIUM, TOTAL 8.7 mg/dL (8.8-10.5); CREATININE 1.98 mg/dL (0.60-1.30)
[2019-05-19] MEDS: NIFEdipine 30 MG ER TABLET PO SCH (09:57)
[2019-05-19] MEDS: HydrALAZINE HCL 25 MG TABLET PO SCH ×3 (09:57→20:36)
[2019-05-19] MEDS: CLOPIDOGREL BISULFATE 75 MG TABLET PO SCH (09:57)
[2019-05-19] MEDS: HEPARIN SODIUM,PORCINE 5,000 UNITS/ML VIAL SQ SCH ×3 (09:58→23:38)
[2019-05-19] MEDS: PANTOPRAZOLE SODIUM 40 MG DR TABLET PO SCH (09:58)
[2019-05-19] MEDS: LOSARTAN POTASSIUM 50 MG TABLET PO SCH (09:58)
[2019-05-19] MEDS: DOCUSATE SODIUM 100 MG CAPSULE PO SCH (09:58)
[2019-05-19] MEDS: COLCHICINE 0.6 MG TABLET PO SCH ×3 (09:58→20:36)
[2019-05-19] MEDS: CefTRIAXone 1 GM/DEXTROSE 50 ML IV SCH (10:05)
[2019-05-19] MEDS: MORPHINE SULFATE 2 MG/ML SYRINGE IVP PRN (10:05)
[2019-05-19] MEDS: HYDROCODONE/ACETAMINOPHEN 5-325 MG TABLET PO PRN ×2 (16:48→23:38)
[2019-05-20 05:15] VITALS: BP 136/79
[2019-05-20 07:48] LABS: BASOPHILS % (AUTO) 0.7 % (0.0-2.0); EOSINOPHILS % (AUTO) 1.3 % (1.0-6.0); HEMATOCRIT 33.9 % (41-53); HEMOGLOBIN 11.6 g/dL (13.5-17.5); LYMPHOCYTES # (AUTO) 1.8 K/uL (1.0-4.8); LYMPHOCYTES % (AUTO) 17.7 % (22.0-44.0); MEAN CORPUSCULAR HGB CONC 34.2 G/dL (31.0-37.0); MEAN CORPUSCULAR VOLUME 94 fL (80-100); MONOCYTES # (AUTO) 0.8 K/uL (0.1-1.0); MONOCYTES % (AUTO) 7.9 % (2.0-9.0); NEUTROPHILS # (AUTO) 7.4 K/uL (1.8-7.7); NEUTROPHILS % (AUTO) 72.4 % (40.0-70.0); PLATELET COUNT (AUTO) 231 K/uL (150-450); RED BLOOD CELL COUNT(AUTO) 3.63 MIL/uL (4.50-5.90); RED CELL DISTRIBUTION WIDTH 13.9 % (11.5-14.5)
[2019-05-20 08:05] VITALS: BP 144/64
[2019-05-20 08:10] LABS: CREATININE 1.97 mg/dL (0.60-1.30); POTASSIUM 4.7 mmol/L (3.5-5.1)
[2019-05-20 08:11] LABS: ALBUMIN 2.8 g/dL (3.4-5.0); BILIRUBIN,TOTAL 0.4 mg/dL (0.1-1.0); CALCIUM, TOTAL 8.8 mg/dL (8.8-10.5); TOTAL PROTEIN, SERUM 6.5 g/dL (6.4-8.2)
[2019-05-20] MEDS: PANTOPRAZOLE SODIUM 40 MG DR TABLET PO SCH (08:20)
[2019-05-20] MEDS: HEPARIN SODIUM,PORCINE 5,000 UNITS/ML VIAL SQ SCH ×2 (08:20→15:53)
[2019-05-20] MEDS: COLCHICINE 0.6 MG TABLET PO SCH ×2 (08:20→15:49)
[2019-05-20] MEDS: DOCUSATE SODIUM 100 MG CAPSULE PO SCH (08:20)
[2019-05-20] MEDS: LOSARTAN POTASSIUM 50 MG TABLET PO SCH (08:20)
[2019-05-20] MEDS: NIFEdipine 30 MG ER TABLET PO SCH (08:21)
[2019-05-20] MEDS: CLOPIDOGREL BISULFATE 75 MG TABLET PO SCH (08:21)
[2019-05-20] MEDS: HydrALAZINE HCL 25 MG TABLET PO SCH ×2 (08:21→15:49)
[2019-05-20] MEDS: CefTRIAXone 1 GM/DEXTROSE 50 ML IV SCH (10:11)
[2019-05-20 11:59] VITALS: BP 136/70
[2019-05-20] MEDS ORDERED: MethylPREDNISolone SOD SUCC 125 MG/2 ML VIAL IVP ONE (12:00)
[2019-05-20] MEDS ORDERED: PANT40TA25 PO (15:07)
[2019-05-20] MEDS ORDERED: ACET650S14 PR (15:08)
[2019-05-20] MEDS ORDERED: BISA-151 PO (15:09)
[2019-05-20] MEDS ORDERED: CEFX1I IV (15:10)
[2019-05-20] MEDS ORDERED: COLC0.6T73 PO ×2 (15:11)
[2019-05-20] MEDS ORDERED: INFLUENZA VIRUS VACCINE QVS 2019-20 (3YR+)/PF 60 MCG/0.5 ML SYRINGE IM ONE (15:15)
== END 2019-05-20 17:03 | DRG 549 ==
LOC: EMS 08:26 → 4E 15:05 → EMS 15:16
PROVIDERS: ADMIT Hospitalist; ATTEND Hospitalist
PROC: 0R9M3ZZ Drainage of Left Elbow Joint, Percutaneous Approach (ICD-10-PCS; principal; 2019-05-17)
PROC: 3E02340 Introduction of Influenza Vaccine into Muscle, Percutaneous Approach (ICD-10-PCS; 2019-05-20)
DX: M00.822 Arthritis due to other bacteria, left elbow (principal); N17.9 Acute kidney failure, unspecified; E44.0 Moderate protein-calorie malnutrition; M71.9 Bursopathy, unspecified; E78.00 Pure hypercholesterolemia, unspecified; E87.5 Hyperkalemia; I25.10 Atherosclerotic heart disease of native coronary artery without angina pectoris; E03.9 Hypothyroidism, unspecified; E11.22 Type 2 diabetes mellitus with diabetic chronic kidney disease; N18.9 Chronic kidney disease, unspecified; I12.9 Hypertensive chronic kidney disease with stage 1 through stage 4 chronic kidney disease, or unspecified chronic kidney disease; M11.222 Other chondrocalcinosis, left elbow; D64.9 Anemia, unspecified; M65.88 Other synovitis and tenosynovitis, other site; Z95.5 Presence of coronary angioplasty implant and graft; Z68.29 Body mass index [BMI] 29.0-29.9, adult; Z23 Encounter for immunization
CPT/HCPCS: 70450; 73221; 87070; 87205; 89051; 89060; 90686; 93005; 96365; 96366; 96368; 97116; 97162; 97166; 97535; G0378; J0696; J1644; J2060; J2270; J2930; J3370; J3490; J7030

== ENCOUNTER 2020-01-08 12:14 | Inpatient (IN) | payer MEDICARE, OTHER ==
[~2020-01-08] VITALS: Ht 165.1 cm; Wt 86.5 kg
[~2020-01-08 12:14] MED LIST changes: +ACET650S14 PR; +BISA-151 PO; +CEFX1I IV; +COLC0.6T73 PO; -LEVO250 PO; +LOSA50TA37 PO; -LOSA50TA64 PO; -OMEP20 PO; -OSEL75 PO; +PANT-31 PO
[2020-01-08] MEDS ORDERED: LEVO100 PO (12:53)
[2020-01-08] MEDS ORDERED: ISOS60TA4 PO (12:53)
[2020-01-08] MEDS ORDERED: PIOG15TA6 PO (12:53)
[2020-01-08] MEDS ORDERED: OMEP20 PO (12:53)
[2020-01-08] MEDS ORDERED: SEMA1PEN SQ (12:53)
[2020-01-08] MEDS ORDERED: METO50 PO (12:53)
[2020-01-08] MEDS ORDERED: CHOL100018 PO (12:53)
[2020-01-08] MEDS ORDERED: ATOR40TA28 PO (12:53)
[2020-01-08] MEDS ORDERED: ASPI-728 PO (12:53)
[2020-01-08] MEDS ORDERED: GABA-1216 PO (12:53)
[2020-01-08] MEDS ORDERED: FERR-82 PO (12:53)
[2020-01-08] MEDS ORDERED: LOSA50TA37 PO (12:53)
[2020-01-08] MEDS ORDERED: TraMADol HCL 50 MG TABLET PO ONE (14:00)
[2020-01-08 14:19] LABS: BASOPHILS % (AUTO) 0.8 % (0.0-2.0); EOSINOPHILS % (AUTO) 3.1 % (1.0-6.0); HEMATOCRIT 31.5 % (41-53); HEMOGLOBIN 10.7 g/dL (13.5-17.5); LYMPHOCYTES # (AUTO) 1.2 K/uL (1.0-4.8); LYMPHOCYTES % (AUTO) 12.3 % (22.0-44.0); MEAN CORPUSCULAR HEMOGLOBIN 31.8 pg (26.0-34.0); MEAN CORPUSCULAR VOLUME 94 fL (80-100); MONOCYTES # (AUTO) 1.2 K/uL (0.1-1.0); MONOCYTES % (AUTO) 11.9 % (2.0-9.0); NEUTROPHILS # (AUTO) 7.1 K/uL (1.8-7.7); NEUTROPHILS % (AUTO) 71.9 % (40.0-70.0); PLATELET COUNT (AUTO) 224 K/uL (150-450); RED BLOOD CELL COUNT(AUTO) 3.36 MIL/uL (4.50-5.90); RED CELL DISTRIBUTION WIDTH 13.8 % (11.5-14.5)
[2020-01-08 14:33] LABS: CALCIUM, TOTAL 8.9 mg/dL (8.8-10.5); CREATININE 1.6 mg/dL (0.60-1.30); POTASSIUM 4.4 mmol/L (3.5-5.1)
[2020-01-08 14:39] LABS: BILIRUBIN,TOTAL 0.9 mg/dL (0.1-1.0); TOTAL PROTEIN, SERUM 6.6 g/dL (6.4-8.2); URIC ACID 7.1 mg/dL (2.6-7.2)
[2020-01-08] MEDS ORDERED: CefTRIAXone 1 GM/DEXTROSE 50 ML IV ONE (15:00)
[2020-01-08] MEDS ORDERED: AZITHROMYCIN 500 MG/NS 250 ML IV ONE (15:00)
[2020-01-08] MEDS ORDERED: ACETAMINOPHEN 325 MG TABLET PO PRN (15:15)
[2020-01-08] MEDS ORDERED: 0.9% SODIUM CHLORIDE 10 ML SYRINGE IVP PRN ×2 (15:15→15:30)
[2020-01-08] MEDS ORDERED: SODIUM CHLORIDE 0.9% 1,000 ML IV ONE (15:15)
[2020-01-08] MEDS ORDERED: ALBUTEROL SULFATE/IPRATROPIUM 100-20 MCG/SPRAY 4 GM INHALER IH PRN (15:15)
[2020-01-08] MEDS ORDERED: BISACODYL 5 MG EC TABLET PO PRN (15:30)
[2020-01-08] MEDS ORDERED: ONDANSETRON HCL 4 MG/2 ML VIAL IVP PRN (15:30)
[2020-01-08] MEDS ORDERED: MAGNESIUM HYDROXIDE SUSPENSION 30 ML UDCUP PO PRN (15:30)
[2020-01-08] MEDS ORDERED: DEXTROSE 50%-WATER 25 GM/50 ML SYRINGE IVP PRN (15:30)
[2020-01-08 16:11] LABS: LACTIC ACID 0.9 mmol/L (0.4-2.0)
[2020-01-08 16:19] LABS: B-TYPE NATRIURETIC PEPTIDE 248 pg/mL (0-100)
[2020-01-08 16:26] LABS: C-REACTIVE PROTEIN QUANT 6.43 mg/dL (0.00-0.30); CREATINE KINASE, TOTAL ONLY 138 U/L (39-308); FERRITIN 162 ng/mL (26-388); LACTATE DEHYDROGENASE 159 U/L (85-227)
[2020-01-08] MEDS: GABAPENTIN 100 MG CAPSULE PO SCH ×2 (16:34→21:46)
[2020-01-08 16:35] LABS: INFLUENZA TYPE A NEGATIVE FOR TYPE A (NEGATIVE); INFLUENZA TYPE B NEGATIVE FOR TYPE B (NEGATIVE)
[2020-01-08 16:43] LABS: D-DIMER 1.81 mg/L FEU (0.00-0.50); INR 1.1 (0.9-1.1); PROTHROMBIN TIME 11.4 SEC (9.4-11.6)
[2020-01-08] MEDS: FERROUS SULFATE 325 MG EC TABLET PO SCH (19:11)
[2020-01-08 20:49] VITALS: BP 181/87
[2020-01-08] MEDS: DOCUSATE SODIUM 100 MG CAPSULE PO SCH (21:33)
[2020-01-08] MEDS: HEPARIN SODIUM,PORCINE 5,000 UNITS/ML VIAL SQ SCH (21:33)
[2020-01-08] MEDS: ATORVASTATIN CALCIUM 40 MG TABLET PO SCH (21:33)
[2020-01-08] MEDS: ALBUTEROL SULFATE/IPRATROPIUM 100-20 MCG/SPRAY 4 GM INHALER IH SCH (21:34)
[2020-01-08] MEDS: LACTOBACILLUS ACIDOPHILUS/BULGARICUS TABLET PO SCH (21:46)
[2020-01-08 23:43] LABS: GLUCOMETER DEV NAME(LOC) 6N.2; GLUCOSE,POINT OF CARE 89 MG/DL (70-110)
[2020-01-08 23:56] VITALS: BP 149/76
[2020-01-09 04:29] VITALS: BP 163/74
[2020-01-09 06:07] LABS: GLUCOMETER DEV NAME(LOC) 6S.1; GLUCOSE,POINT OF CARE 121 MG/DL (70-110)
[2020-01-09] MEDS: ALBUTEROL SULFATE/IPRATROPIUM 100-20 MCG/SPRAY 4 GM INHALER IH SCH ×5 (06:09→23:42)
[2020-01-09] MEDS: LEVOTHYROXINE SODIUM 100 MCG TABLET PO SCH (06:10)
[2020-01-09 07:27] LABS: BASOPHILS % (AUTO) 0.5 % (0.0-2.0); EOSINOPHILS % (AUTO) 3.3 % (1.0-6.0); HEMATOCRIT 30.2 % (41-53); HEMOGLOBIN 10.4 g/dL (13.5-17.5); LYMPHOCYTES # (AUTO) 1.2 K/uL (1.0-4.8); LYMPHOCYTES % (AUTO) 13.9 % (22.0-44.0); MEAN CORPUSCULAR HEMOGLOBIN 31.8 pg (26.0-34.0); MEAN CORPUSCULAR HGB CONC 34.3 G/dL (31.0-37.0); MEAN CORPUSCULAR VOLUME 93 fL (80-100); MONOCYTES # (AUTO) 0.9 K/uL (0.1-1.0); MONOCYTES % (AUTO) 10.7 % (2.0-9.0); NEUTROPHILS # (AUTO) 6.1 K/uL (1.8-7.7); NEUTROPHILS % (AUTO) 71.6 % (40.0-70.0); PLATELET COUNT (AUTO) 227 K/uL (150-450); RED BLOOD CELL COUNT(AUTO) 3.26 MIL/uL (4.50-5.90)
[2020-01-09 07:53] VITALS: BP 161/77
[2020-01-09 08:13] LABS: ALBUMIN 2.9 g/dL (3.4-5.0); BILIRUBIN,TOTAL 0.8 mg/dL (0.1-1.0); C-REACTIVE PROTEIN QUANT 7.89 mg/dL (0.00-0.30); CALCIUM, TOTAL 8.1 mg/dL (8.8-10.5); CREATININE 1.57 mg/dL (0.60-1.30); TOTAL PROTEIN, SERUM 6.3 g/dL (6.4-8.2)
[2020-01-09] MEDS: ASPIRIN 81 MG CHEWABLE TABLET PO SCH (08:38)
[2020-01-09] MEDS: DOCUSATE SODIUM 100 MG CAPSULE PO SCH ×2 (08:38→20:13)
[2020-01-09] MEDS: FERROUS SULFATE 325 MG EC TABLET PO SCH ×2 (08:38→17:37)
[2020-01-09] MEDS: PANTOPRAZOLE SODIUM 40 MG DR TABLET PO SCH (08:39)
[2020-01-09] MEDS: METOPROLOL TARTRATE 50 MG TABLET PO SCH (08:39)
[2020-01-09] MEDS: LACTOBACILLUS ACIDOPHILUS/BULGARICUS TABLET PO SCH ×2 (08:39→20:13)
[2020-01-09] MEDS: CLOPIDOGREL BISULFATE 75 MG TABLET PO SCH (08:39)
[2020-01-09] MEDS: GABAPENTIN 100 MG CAPSULE PO SCH ×3 (08:39→20:13)
[2020-01-09] MEDS: HEPARIN SODIUM,PORCINE 5,000 UNITS/ML VIAL SQ SCH ×2 (08:40→20:14)
[2020-01-09] MEDS: ISOSORBIDE MONONITRATE 60 MG ER TABLET PO SCH (08:40)
[2020-01-09] MEDS: CHOLECALCIFEROL (VIT D3) 1,000 UNITS [25 MCG] TABLET PO SCH (08:40)
[2020-01-09] MEDS ORDERED: LOSARTAN POTASSIUM 50 MG TABLET PO SCH (09:00)
[2020-01-09 10:58] LABS: ERYTHROCYTE SEDIMENTATION RATE 56 MM/HR (0-15)
[2020-01-09 11:51] VITALS: BP 161/83
[2020-01-09] MEDS: INSULIN LISPRO 100 UNITS/ML SQ PRN (11:54)
[2020-01-09 12:13] LABS: GLUCOMETER DEV NAME(LOC) 6S.1; GLUCOSE,POINT OF CARE 146 MG/DL (70-110)
[2020-01-09] MEDS ORDERED: SODIUM CHLORIDE 0.9% 500 ML IV ONE (12:43)
[2020-01-09] MEDS: CefTRIAXone 1 GM/DEXTROSE 50 ML IV SCH (14:36)
[2020-01-09] MEDS: AZITHROMYCIN 500 MG/NS 250 ML IV SCH (16:17)
[2020-01-09 18:00] LABS: GLUCOMETER DEV NAME(LOC) 6N.2; GLUCOSE,POINT OF CARE 79 MG/DL (70-110)
[2020-01-09 20:10] VITALS: BP 147/66
[2020-01-09] MEDS: AmLODIPine BESYLATE 5 MG TABLET PO SCH (20:13)
[2020-01-09] MEDS: ATORVASTATIN CALCIUM 40 MG TABLET PO SCH (20:13)
[2020-01-09 23:47] VITALS: BP 146/56
[2020-01-10 05:27] VITALS: BP 139/74
[2020-01-10] MEDS: ACETAMINOPHEN 325 MG TABLET PO PRN ×2 (05:28→16:37)
[2020-01-10] MEDS: ALBUTEROL SULFATE/IPRATROPIUM 100-20 MCG/SPRAY 4 GM INHALER IH SCH ×4 (05:29→23:34)
[2020-01-10] MEDS: LEVOTHYROXINE SODIUM 100 MCG TABLET PO SCH (05:31)
[2020-01-10 05:54] LABS: GLUCOMETER DEV NAME(LOC) 6N.2; GLUCOSE,POINT OF CARE 89 MG/DL (70-110)
[2020-01-10 06:31] LABS: GLUCOMETER DEV NAME(LOC) 6S.1; GLUCOSE,POINT OF CARE 94 MG/DL (70-110)
[2020-01-10 08:40] VITALS: BP 152/77
[2020-01-10] MEDS: LACTOBACILLUS ACIDOPHILUS/BULGARICUS TABLET PO SCH ×2 (09:01→20:21)
[2020-01-10] MEDS: ISOSORBIDE MONONITRATE 60 MG ER TABLET PO SCH (09:01)
[2020-01-10] MEDS: LOSARTAN POTASSIUM 50 MG TABLET PO SCH (09:01)
[2020-01-10] MEDS: ASPIRIN 81 MG CHEWABLE TABLET PO SCH (09:01)
[2020-01-10] MEDS: CHOLECALCIFEROL (VIT D3) 1,000 UNITS [25 MCG] TABLET PO SCH (09:01)
[2020-01-10] MEDS: FERROUS SULFATE 325 MG EC TABLET PO SCH ×2 (09:01→17:26)
[2020-01-10] MEDS: METOPROLOL TARTRATE 50 MG TABLET PO SCH (09:02)
[2020-01-10] MEDS: DOCUSATE SODIUM 100 MG CAPSULE PO SCH ×2 (09:02→20:21)
[2020-01-10] MEDS: PANTOPRAZOLE SODIUM 40 MG DR TABLET PO SCH (09:02)
[2020-01-10] MEDS: CLOPIDOGREL BISULFATE 75 MG TABLET PO SCH (09:02)
[2020-01-10] MEDS: GABAPENTIN 100 MG CAPSULE PO SCH ×3 (09:02→20:21)
[2020-01-10] MEDS: HEPARIN SODIUM,PORCINE 5,000 UNITS/ML VIAL SQ SCH ×2 (09:11→21:18)
[2020-01-10 12:04] VITALS: BP 109/50
[2020-01-10] MEDS ORDERED: LEVO-72 PO (13:19)
[2020-01-10 14:50] LABS: GLUCOMETER DEV NAME(LOC) 6S.1; GLUCOSE,POINT OF CARE 134 MG/DL (70-110)
[2020-01-10] MEDS: CefTRIAXone 1 GM/DEXTROSE 50 ML IV SCH (15:26)
[2020-01-10 15:48] VITALS: BP 112/70
[2020-01-10] MEDS: AZITHROMYCIN 500 MG/NS 250 ML IV SCH (16:44)
[2020-01-10 20:13] LABS: GLUCOMETER DEV NAME(LOC) 6N.2; GLUCOSE,POINT OF CARE 137 MG/DL (70-110)
[2020-01-10] MEDS: AmLODIPine BESYLATE 5 MG TABLET PO SCH (20:21)
[2020-01-10] MEDS: INSULIN LISPRO 100 UNITS/ML SQ PRN (20:23)
[2020-01-10] MEDS: ATORVASTATIN CALCIUM 40 MG TABLET PO SCH (20:24)
[2020-01-10 20:29] VITALS: BP 131/72
[2020-01-10 20:41] LABS: GLUCOMETER DEV NAME(LOC) 6S.1; GLUCOSE,POINT OF CARE 174 MG/DL (70-110)
[2020-01-11 04:20] VITALS: BP 148/75
[2020-01-11] MEDS: LEVOTHYROXINE SODIUM 100 MCG TABLET PO SCH (05:28)
[2020-01-11] MEDS: ALBUTEROL SULFATE/IPRATROPIUM 100-20 MCG/SPRAY 4 GM INHALER IH SCH ×2 (05:29→11:16)
[2020-01-11] MEDS: ACETAMINOPHEN 325 MG TABLET PO PRN (05:29)
[2020-01-11 06:47] LABS: GLUCOMETER DEV NAME(LOC) 6S.1; GLUCOSE,POINT OF CARE 128 MG/DL (70-110)
[2020-01-11 08:17] VITALS: BP 163/70
[2020-01-11] MEDS: CLOPIDOGREL BISULFATE 75 MG TABLET PO SCH (08:26)
[2020-01-11] MEDS: LACTOBACILLUS ACIDOPHILUS/BULGARICUS TABLET PO SCH (08:26)
[2020-01-11] MEDS: ASPIRIN 81 MG CHEWABLE TABLET PO SCH (08:26)
[2020-01-11] MEDS: GABAPENTIN 100 MG CAPSULE PO SCH (08:26)
[2020-01-11] MEDS: ISOSORBIDE MONONITRATE 60 MG ER TABLET PO SCH (08:26)
[2020-01-11] MEDS: CHOLECALCIFEROL (VIT D3) 1,000 UNITS [25 MCG] TABLET PO SCH (08:26)
[2020-01-11] MEDS: METOPROLOL TARTRATE 50 MG TABLET PO SCH (08:27)
[2020-01-11] MEDS: LOSARTAN POTASSIUM 50 MG TABLET PO SCH (08:27)
[2020-01-11] MEDS: FERROUS SULFATE 325 MG EC TABLET PO SCH (08:27)
[2020-01-11] MEDS: PANTOPRAZOLE SODIUM 40 MG DR TABLET PO SCH (08:27)
[2020-01-11] MEDS: DOCUSATE SODIUM 100 MG CAPSULE PO SCH (08:27)
[2020-01-11] MEDS: HEPARIN SODIUM,PORCINE 5,000 UNITS/ML VIAL SQ SCH (08:33)
[2020-01-11 11:20] VITALS: BP 135/76
[2020-01-11 17:15] LABS: GLUCOMETER DEV NAME(LOC) 6S.1; GLUCOSE,POINT OF CARE 140 MG/DL (70-110)
[2020-01-12 09:30] LABS: ORGANISM ID Not indicated.; S PNEUMO SOURCE Urine; STREP PNEUMONIAE AG URINE Negative (Negative); STREP.PNEUMO BODY FLUID CULT. Not indicated.
== END 2020-01-11 16:31 | disposition home health service (06) | DRG 194 ==
LOC: EMS 12:17 → 6N 15:26
PROVIDERS: ADMIT Internal Medicine; ATTEND Internal Medicine
DX: J18.9 Pneumonia, unspecified organism (principal); N17.9 Acute kidney failure, unspecified; I11.9 Hypertensive heart disease without heart failure; E11.40 Type 2 diabetes mellitus with diabetic neuropathy, unspecified; E78.5 Hyperlipidemia, unspecified; D63.8 Anemia in other chronic diseases classified elsewhere; Z20.828 Contact with and (suspected) exposure to other viral communicable diseases; J43.9 Emphysema, unspecified; M10.9 Gout, unspecified; K21.9 Gastro-esophageal reflux disease without esophagitis; Z03.818 Encounter for observation for suspected exposure to other biological agents ruled out; Z79.01 Long term (current) use of anticoagulants; Z79.02 Long term (current) use of antithrombotics/antiplatelets; Z79.82 Long term (current) use of aspirin; Z79.1 Long term (current) use of non-steroidal anti-inflammatories (NSAID); Z79.891 Long term (current) use of opiate analgesic; Z79.899 Other long term (current) drug therapy; Z87.891 Personal history of nicotine dependence; Z98.62 Peripheral vascular angioplasty status
CPT/HCPCS: 82728; 83605; 83615; 84145; 84550; 85379; 85384; 85651; 86140; 87040; 87070; 87205; 87804; 87899; 93306; 93971; 97110; 97116; 97162; 97530; J0456; J0696; J1644; J7030; J7040

== ENCOUNTER 2020-08-22 14:48 | Inpatient (IN) | payer MEDICARE, OTHER ==
[~2020-08-22] VITALS: Ht 172.7 cm; Wt 81.0 kg
[~2020-08-22 14:48] MED LIST changes: -ACET650S14 PR; +ASPI-728 PO; +ATOR40TA28 PO; -CEFX1I IV; +CHOL100018 PO; -CLOP75TA3 PO; +CLOP75TA60 PO; -COLC0.6T73 PO; -DSS100 PO; +FERR-82 PO; +GABA-1216 PO; -GUAIF10 PO; -HYDR25TA84 PO; +ISOS60TA4 PO; +LEVO-72 PO; +LEVO100 PO; +METO50 PO; -NIFE10CA PO; +OMEP20 PO; -PANT-31 PO; +PIOG15TA6 PO; +SEMA1PEN SQ
[2020-08-22] MEDS ORDERED: SODIUM CHLORIDE 0.9% 1,000 ML IV ONE ×3 (16:00→22:00)
[2020-08-22 17:49] LABS: BASOPHILS % (AUTO) 0.3 % (0.0-2.0); EOSINOPHILS % (AUTO) 1.5 % (1.0-6.0); HEMOGLOBIN 11.2 g/dL (13.5-17.5); LYMPHOCYTES # (AUTO) 0.8 K/uL (1.0-4.8); LYMPHOCYTES % (AUTO) 14.1 % (22.0-44.0); MEAN CORPUSCULAR HEMOGLOBIN 31.3 pg (26.0-34.0); MEAN CORPUSCULAR VOLUME 95 fL (80-100); MONOCYTES # (AUTO) 0.6 K/uL (0.1-1.0); MONOCYTES % (AUTO) 11.5 % (2.0-9.0); NEUTROPHILS # (AUTO) 3.9 K/uL (1.8-7.7); NEUTROPHILS % (AUTO) 72.6 % (40.0-70.0); PLATELET COUNT (AUTO) 170 K/uL (150-450); RED CELL DISTRIBUTION WIDTH 13.4 % (11.5-14.5)
[2020-08-22 18:19] LABS: COVID AG,FIA SOURCE NASOPHARYNGEAL
[2020-08-22 18:29] LABS: CALCIUM, TOTAL 8.3 mg/dL (8.8-10.5); CREATININE 1.72 mg/dL (0.60-1.30); POTASSIUM 4.2 mmol/L (3.5-5.1)
[2020-08-22 18:34] LABS: ALBUMIN 2.8 g/dL (3.4-5.0); BILIRUBIN,TOTAL 0.6 mg/dL (0.1-1.0); TOTAL PROTEIN, SERUM 6.7 g/dL (6.4-8.2)
[2020-08-22] MEDS ORDERED: PIPERACILLIN/TAZO 3.375 GM/D5W 50 ML IV ONE (20:00)
[2020-08-22] MEDS ORDERED: ACETAMINOPHEN 325 MG TABLET PO PRN ×2 (20:15→22:00)
[2020-08-22] MEDS ORDERED: ONDANSETRON HCL 4 MG/2 ML VIAL IVP PRN ×2 (20:15→22:00)
[2020-08-22] MEDS ORDERED: MAGNESIUM HYDROXIDE SUSPENSION 30 ML UDCUP PO PRN (22:00)
[2020-08-22] MEDS ORDERED: ZOLPIDEM TARTRATE 5 MG TABLET PO PRN (22:00)
[2020-08-22] MEDS ORDERED: BISACODYL 10 MG RECTAL RECTAL SUPPOSITORY PR PRN (22:00)
[2020-08-22] MEDS ORDERED: DEXTROSE 50%-WATER 25 GM/50 ML SYRINGE IVP PRN (22:00)
[2020-08-22] MEDS ORDERED: MORPHINE SULFATE 2 MG/ML SYRINGE IVP PRN (22:00)
[2020-08-22] MEDS ORDERED: HYDROCODONE/ACETAMINOPHEN 5-325 MG TABLET PO PRN (22:00)
[2020-08-22 23:36] VITALS: BP 180/92
[2020-08-23] MEDS: HEPARIN SODIUM,PORCINE 5,000 UNITS/ML VIAL SQ SCH ×3 (00:51→16:50)
[2020-08-23] MEDS ORDERED: LEVOFLOXACIN 500 MG/D5% WATER 100 ML IV ONE (01:00)
[2020-08-23 05:20] VITALS: BP 190/86
[2020-08-23] MEDS: CloNIDine HCL 0.1 MG TABLET PO PRN ×2 (05:47→12:41)
[2020-08-23] MEDS: LEVOTHYROXINE SODIUM 100 MCG TABLET PO SCH (05:47)
[2020-08-23 06:39] LABS: BASOPHILS % (AUTO) 0.4 % (0.0-2.0); EOSINOPHILS % (AUTO) 1.6 % (1.0-6.0); HEMOGLOBIN 11.6 g/dL (13.5-17.5); LYMPHOCYTES # (AUTO) 0.7 K/uL (1.0-4.8); LYMPHOCYTES % (AUTO) 12.6 % (22.0-44.0); MEAN CORPUSCULAR HEMOGLOBIN 31.6 pg (26.0-34.0); MEAN CORPUSCULAR HGB CONC 33.3 G/dL (31.0-37.0); MEAN CORPUSCULAR VOLUME 95 fL (80-100); MONOCYTES # (AUTO) 0.8 K/uL (0.1-1.0); MONOCYTES % (AUTO) 13.2 % (2.0-9.0); NEUTROPHILS # (AUTO) 4.2 K/uL (1.8-7.7); NEUTROPHILS % (AUTO) 72.2 % (40.0-70.0); PLATELET COUNT (AUTO) 171 K/uL (150-450); RED BLOOD CELL COUNT(AUTO) 3.68 MIL/uL (4.50-5.90); RED CELL DISTRIBUTION WIDTH 13.4 % (11.5-14.5)
[2020-08-23 07:04] VITALS: BP 159/84
[2020-08-23 07:14] LABS: CALCIUM, TOTAL 8.7 mg/dL (8.8-10.5); CREATININE 1.47 mg/dL (0.60-1.30); POTASSIUM 3.7 mmol/L (3.5-5.1)
[2020-08-23] MEDS: DOCUSATE SODIUM 100 MG CAPSULE PO SCH ×2 (08:51→20:30)
[2020-08-23] MEDS: ISOSORBIDE MONONITRATE 60 MG ER TABLET PO SCH (08:51)
[2020-08-23] MEDS: GABAPENTIN 100 MG CAPSULE PO SCH ×3 (08:51→20:30)
[2020-08-23] MEDS: CLOPIDOGREL BISULFATE 75 MG TABLET PO SCH (08:52)
[2020-08-23] MEDS: DEXAMETHASONE SOD PHOS 4 MG/ML VIAL IVP SCH (08:52)
[2020-08-23] MEDS: PANTOPRAZOLE SODIUM 40 MG DR TABLET PO SCH (08:52)
[2020-08-23] MEDS: CHOLECALCIFEROL (VIT D3) 1,000 UNITS [25 MCG] TABLET PO SCH (08:52)
[2020-08-23] MEDS: ASPIRIN 81 MG CHEWABLE TABLET PO SCH (08:52)
[2020-08-23] MEDS: METOPROLOL TARTRATE 50 MG TABLET PO SCH (08:52)
[2020-08-23] MEDS ORDERED: PIPERACILLIN SODIUM/TAZOBACTAM 2.25 GM in DEXTROSE 5%-WATER 50 ML IV SCH (09:00)
[2020-08-23 09:01] LABS: GLUCOMETER DEV NAME(LOC) 5N.1B; GLUCOSE,POINT OF CARE 92 MG/DL (70-110)
[2020-08-23 11:21] VITALS: BP 188/98
[2020-08-23 12:37] LABS: GLUCOMETER DEV NAME(LOC) 5N.1B; GLUCOSE,POINT OF CARE 194 MG/DL (70-110)
[2020-08-23] MEDS: ASCORBIC ACID 500 MG TABLET PO SCH (12:41)
[2020-08-23] MEDS: INSULIN LISPRO 100 UNITS/ML SQ PRN ×2 (12:45→17:26)
[2020-08-23 15:20] VITALS: BP 164/78
[2020-08-23 18:42] VITALS: BP 134/74
[2020-08-23] MEDS: ATORVASTATIN CALCIUM 40 MG TABLET PO SCH (20:30)
[2020-08-23] MEDS: ZINC SULFATE 220 MG CAPSULE PO SCH (20:30)
[2020-08-23 20:48] VITALS: BP 158/80
[2020-08-24] MEDS: CloNIDine HCL 0.1 MG TABLET PO PRN ×3 (00:21→15:38)
[2020-08-24] MEDS: HEPARIN SODIUM,PORCINE 5,000 UNITS/ML VIAL SQ SCH ×4 (00:21→23:50)
[2020-08-24 00:30] VITALS: BP 170/87
[2020-08-24] MEDS ORDERED: LEVOFLOXACIN 250 MG/D5% WATER 50 ML IV SCH (01:00)
[2020-08-24 05:30] VITALS: BP 182/76
[2020-08-24] MEDS: LEVOTHYROXINE SODIUM 100 MCG TABLET PO SCH (05:43)
[2020-08-24 06:21] LABS: BASOPHILS % (AUTO) 0.1 % (0.0-2.0); EOSINOPHILS % (AUTO) 0.1 % (1.0-6.0); HEMATOCRIT 33.5 % (41-53); HEMOGLOBIN 11.3 g/dL (13.5-17.5); LYMPHOCYTES # (AUTO) 0.5 K/uL (1.0-4.8); LYMPHOCYTES % (AUTO) 11.8 % (22.0-44.0); MEAN CORPUSCULAR HEMOGLOBIN 31.6 pg (26.0-34.0); MEAN CORPUSCULAR HGB CONC 33.8 G/dL (31.0-37.0); MEAN CORPUSCULAR VOLUME 94 fL (80-100); MONOCYTES # (AUTO) 0.5 K/uL (0.1-1.0); MONOCYTES % (AUTO) 10.7 % (2.0-9.0); NEUTROPHILS # (AUTO) 3.5 K/uL (1.8-7.7); NEUTROPHILS % (AUTO) 77.3 % (40.0-70.0); PLATELET COUNT (AUTO) 195 K/uL (150-450); RED BLOOD CELL COUNT(AUTO) 3.58 MIL/uL (4.50-5.90); RED CELL DISTRIBUTION WIDTH 13.3 % (11.5-14.5)
[2020-08-24 07:09] LABS: CALCIUM, TOTAL 8.3 mg/dL (8.8-10.5); CREATININE 1.48 mg/dL (0.60-1.30)
[2020-08-24] MEDS: DEXAMETHASONE SOD PHOS 4 MG/ML VIAL IVP SCH (08:12)
[2020-08-24] MEDS: ASCORBIC ACID 500 MG TABLET PO SCH (08:13)
[2020-08-24] MEDS: METOPROLOL TARTRATE 50 MG TABLET PO SCH (08:13)
[2020-08-24] MEDS: DOCUSATE SODIUM 100 MG CAPSULE PO SCH ×2 (08:13→20:16)
[2020-08-24] MEDS: CLOPIDOGREL BISULFATE 75 MG TABLET PO SCH (08:13)
[2020-08-24] MEDS: CHOLECALCIFEROL (VIT D3) 1,000 UNITS [25 MCG] TABLET PO SCH (08:13)
[2020-08-24] MEDS: PANTOPRAZOLE SODIUM 40 MG DR TABLET PO SCH (08:13)
[2020-08-24] MEDS: ZINC SULFATE 220 MG CAPSULE PO SCH ×2 (08:13→20:16)
[2020-08-24] MEDS: GABAPENTIN 100 MG CAPSULE PO SCH ×3 (08:13→20:16)
[2020-08-24] MEDS: ISOSORBIDE MONONITRATE 60 MG ER TABLET PO SCH (08:13)
[2020-08-24] MEDS: ASPIRIN 81 MG CHEWABLE TABLET PO SCH (08:13)
[2020-08-24 08:53] VITALS: BP 108/62
[2020-08-24] MEDS ORDERED: AmLODIPine BESYLATE 5 MG TABLET PO SCH (09:30)
[2020-08-24 11:55] VITALS: BP 159/73
[2020-08-24] MEDS: INSULIN LISPRO 100 UNITS/ML SQ PRN ×3 (12:09→20:43)
[2020-08-24 15:19] VITALS: BP 159/88
[2020-08-24 19:30] VITALS: BP 143/67
[2020-08-24] MEDS: ATORVASTATIN CALCIUM 40 MG TABLET PO SCH (20:16)
[2020-08-24 21:46] LABS: GLUCOMETER DEV NAME(LOC) 5N.1B; GLUCOSE,POINT OF CARE 233 MG/DL (70-110)
[2020-08-24 23:23] LABS: GLUCOMETER DEV NAME(LOC) 5N.3; GLUCOSE,POINT OF CARE 209 MG/DL (70-110)
[2020-08-24 23:23] LABS: GLUCOMETER DEV NAME(LOC) 5N.3; GLUCOSE,POINT OF CARE 176 MG/DL (70-110)
[2020-08-24 23:23] LABS: GLUCOMETER DEV NAME(LOC) 5N.3; GLUCOSE,POINT OF CARE 129 MG/DL (70-110)
[2020-08-24 23:23] LABS: GLUCOMETER DEV NAME(LOC) 5N.3; GLUCOSE,POINT OF CARE 180 MG/DL (70-110)
[2020-08-24 23:23] LABS: GLUCOMETER DEV NAME(LOC) 5N.3; GLUCOSE,POINT OF CARE 202 MG/DL (70-110)
[2020-08-25 00:15] VITALS: BP 137/77
[2020-08-25 04:25] VITALS: BP 153/77
[2020-08-25] MEDS: LEVOTHYROXINE SODIUM 100 MCG TABLET PO SCH (05:59)
[2020-08-25] MEDS: INSULIN LISPRO 100 UNITS/ML SQ PRN ×3 (06:19→17:09)
[2020-08-25 07:34] VITALS: BP 181/84
[2020-08-25] MEDS: HEPARIN SODIUM,PORCINE 5,000 UNITS/ML VIAL SQ SCH ×2 (08:36→16:57)
[2020-08-25] MEDS: DOCUSATE SODIUM 100 MG CAPSULE PO SCH (08:37)
[2020-08-25] MEDS: ASPIRIN 81 MG CHEWABLE TABLET PO SCH (08:37)
[2020-08-25] MEDS: ISOSORBIDE MONONITRATE 60 MG ER TABLET PO SCH (08:37)
[2020-08-25] MEDS: METOPROLOL TARTRATE 50 MG TABLET PO SCH (08:37)
[2020-08-25] MEDS: DEXAMETHASONE SOD PHOS 4 MG/ML VIAL IVP SCH (08:37)
[2020-08-25] MEDS: CLOPIDOGREL BISULFATE 75 MG TABLET PO SCH (08:38)
[2020-08-25] MEDS: PANTOPRAZOLE SODIUM 40 MG DR TABLET PO SCH (08:38)
[2020-08-25] MEDS: GABAPENTIN 100 MG CAPSULE PO SCH ×2 (08:38→16:57)
[2020-08-25] MEDS: ASCORBIC ACID 500 MG TABLET PO SCH (08:38)
[2020-08-25] MEDS: CHOLECALCIFEROL (VIT D3) 1,000 UNITS [25 MCG] TABLET PO SCH (08:39)
[2020-08-25] MEDS: ZINC SULFATE 220 MG CAPSULE PO SCH (08:39)
[2020-08-25] MEDS ORDERED: AmLODIPine BESYLATE 5 MG TABLET PO SCH (09:00)
[2020-08-25] MEDS ORDERED: AMLO-258 PO (09:01)
[2020-08-25 11:30] VITALS: BP 160/80
[2020-08-25 12:36] LABS: GLUCOMETER DEV NAME(LOC) 5N.3; GLUCOSE,POINT OF CARE 179 MG/DL (70-110)
[2020-08-25 14:40] VITALS: BP 142/73
[2020-08-25 15:12] LABS: GLUCOMETER DEV NAME(LOC) 5N.1B; GLUCOSE,POINT OF CARE 150 MG/DL (70-110)
[2020-08-26 01:09] LABS: GLUCOMETER DEV NAME(LOC) 5N.1B; GLUCOSE,POINT OF CARE 208 MG/DL (70-110)
== END 2020-08-25 19:00 | disposition home or self-care (01) | DRG 177 ==
LOC: EMS 14:48 → 5N 20:13 → 6N 20:13 → UNDOADMIN 20:13 → UNDODISIN 08-24 15:30
PROVIDERS: ADMIT Internal Medicine; ATTEND Internal Medicine
DX: U07.1 COVID-19 (principal); J12.82 Pneumonia due to coronavirus disease 2019; K35.80 Unspecified acute appendicitis; N17.9 Acute kidney failure, unspecified; I10 Essential (primary) hypertension; E78.5 Hyperlipidemia, unspecified; E11.9 Type 2 diabetes mellitus without complications; D64.9 Anemia, unspecified; K21.9 Gastro-esophageal reflux disease without esophagitis; M10.9 Gout, unspecified; Z87.891 Personal history of nicotine dependence; Z95.2 Presence of prosthetic heart valve; I25.10 Atherosclerotic heart disease of native coronary artery without angina pectoris; E86.0 Dehydration
CPT/HCPCS: 74176; 87426; J1100; J1644; J1956; J2543; J7030; J7060; 36415-L1; 36415-TC; 71045-TC

== ENCOUNTER 2023-02-02 13:10 | Inpatient (IN) | payer OTHER ==
[~2023-02-02] VITALS: Ht 167.6 cm; Wt 63.6 kg
[~2023-02-02 13:10] MED LIST changes: +AMLO-258 PO; +APIX5TAB PO; -ASPI-728 PO; -BISA-151 PO; -CHOL100018 PO; +CHOL25TA4 PO; -CLOP75TA60 PO; -FERR-82 PO; -GABA-1216 PO; -ISOS60TA4 PO; -LEVO-72 PO; -LOSA50TA37 PO; -PIOG15TA6 PO; -SEMA1PEN SQ; +SEMA1PEN3 SQ
[2023-02-02] MEDS ORDERED: ISOS60TA77 PO (13:33)
[2023-02-02] MEDS ORDERED: LISI-892 PO (13:33)
[2023-02-02] MEDS ORDERED: GuaiFENesin/D-METHORPHAN [SUGAR-FREE] 200-20MG/10 ML SYRUP UDCUP PO ONE (15:45)
[2023-02-02] MEDS ORDERED: ACETAMINOPHEN 500 MG TABLET PO ONE (15:45)
[2023-02-02 15:59] LABS: COVID AG,FIA SOURCE NASOPHARYNGEAL
[2023-02-02 16:26] LABS: INFLUENZA TYPE A NEGATIVE FOR TYPE A (NEGATIVE); INFLUENZA TYPE B NEGATIVE FOR TYPE B (NEGATIVE)
[2023-02-02 16:32] LABS: BASOPHILS % (AUTO) 0.2 % (0.0-2.0); EOSINOPHILS % (AUTO) 2.3 % (1.0-6.0); HEMATOCRIT 32.3 % (41-53); HEMOGLOBIN 10.9 g/dL (13.5-17.5); LYMPHOCYTES # (AUTO) 1.1 K/uL (1.0-4.8); LYMPHOCYTES % (AUTO) 11.1 % (22.0-44.0); MEAN CORPUSCULAR HEMOGLOBIN 32.4 pg (26.0-34.0); MEAN CORPUSCULAR HGB CONC 33.7 G/dL (31.0-37.0); MEAN CORPUSCULAR VOLUME 96 fL (80-100); MONOCYTES # (AUTO) 1.2 K/uL (0.1-1.0); MONOCYTES % (AUTO) 12.6 % (2.0-9.0); NEUTROPHILS # (AUTO) 7.2 K/uL (1.8-7.7); NEUTROPHILS % (AUTO) 73.8 % (40.0-70.0); PLATELET COUNT (AUTO) 142 K/uL (150-450); RED BLOOD CELL COUNT(AUTO) 3.36 MIL/uL (4.50-5.90); RED CELL DISTRIBUTION WIDTH 14.2 % (11.5-14.5)
[2023-02-02 16:44] LABS: CALCIUM, TOTAL 8.5 mg/dL (8.8-10.5); CREATININE 2.05 mg/dL (0.60-1.30); POTASSIUM 5.7 mmol/L (3.5-5.1)
[2023-02-02 16:50] LABS: ALBUMIN 3.2 g/dL (3.4-5.0); BILIRUBIN,TOTAL 0.7 mg/dL (0.1-1.0); TOTAL PROTEIN, SERUM 6.6 g/dL (6.4-8.2)
[2023-02-02 16:53] LABS: LACTIC ACID 1.3 mmol/L (0.4-2.0)
[2023-02-02] MEDS ORDERED: AZITHROMYCIN 500 MG/NS 250 ML IV ONE (17:15)
[2023-02-02] MEDS ORDERED: SODIUM CHLORIDE 0.9% 1,000 ML IV ONE ×2 (17:15→17:45)
[2023-02-02] MEDS ORDERED: SODIUM CHLORIDE 0.9% 500 ML IV ONE (17:15)
[2023-02-02] MEDS ORDERED: SODIUM ZIRCONIUM CYCLOSILICATE 5 GM POWDER PACKET PO ONE (17:45)
[2023-02-02] MEDS ORDERED: ONDANSETRON HCL 4 MG/2 ML VIAL IVP PRN (17:45)
[2023-02-02] MEDS ORDERED: DEXTROSE 50%-WATER 25 GM/50 ML SYRINGE IVP PRN (17:45)
[2023-02-02] MEDS ORDERED: INSULIN LISPRO 100 UNITS/ML SQ PRN (17:45)
[2023-02-02] MEDS ORDERED: ACETAMINOPHEN 325 MG TABLET PO PRN (17:45)
[2023-02-02] MEDS: AmLODIPine BESYLATE 5 MG TABLET PO SCH (18:03)
[2023-02-02] MEDS: DOCUSATE SODIUM 100 MG CAPSULE PO SCH (20:38)
[2023-02-02] MEDS: APIXABAN 2.5 MG TABLET PO SCH (20:38)
[2023-02-02 21:50] VITALS: BP 153/65; PULSE 75; RESP 18; TEMP 98.1
[2023-02-02] MEDS: BENZONATATE 100 MG CAPSULE PO PRN (22:31)
[2023-02-03] VITALS (7 sets, daily range): BP systolic 147–175; BP diastolic 68–85; PULSE 74–83; RESP 16–20; TEMP 98–98.7; O2SAT 100
[2023-02-03] MEDS ORDERED: ALBUTEROL SULFATE 2.5 MG/0.5 ML NEB SOLUTION NEB PRN (03:15)
[2023-02-03 03:28] LABS: APPEARANCE,URINE CLEAR (CLEAR); BILIRUBIN,URINE NEGATIVE (NEGATIVE); GLUCOSE, URINE (UA) NEGATIVE (NEGATIVE); KETONES,URINE NEGATIVE (NEGATIVE); LEUKOCYTE ESTERASE ,URINE NEGATIVE (NEGATIVE); NITRATE,URINE NEGATIVE (NEGATIVE); OCCULT BLOOD,URINE NEGATIVE (NEGATIVE); PROTEIN,URINE NEGATIVE (NEGATIVE); SPECIFIC GRAVITIY, URINE 1.012 (1.003-1.030); UROBILINOGEN,URINE <=1.0 mg/dL (<=1.0)
[2023-02-03] MEDS: BENZONATATE 100 MG CAPSULE PO PRN (04:35)
[2023-02-03 05:48] LABS: GLUCOMETER DEV NAME(LOC) 6N.1
[2023-02-03 05:58] LABS: CALCIUM, TOTAL 8.1 mg/dL (8.8-10.5); CREATININE 1.59 mg/dL (0.60-1.30); POTASSIUM 4.5 mmol/L (3.5-5.1)
[2023-02-03 06:03] LABS: GLUCOMETER DEV NAME(LOC) 6S.2
[2023-02-03] MEDS ORDERED: IPRATROPIUM BROMIDE 0.5 MG/2.5 ML NEB SOLUTION NEB SCH (07:00)
[2023-02-03] MEDS ORDERED: IPRATROPIUM BROMIDE 0.5 MG/2.5 ML NEB SOLUTION NEB PRN (07:00)
[2023-02-03] MEDS ORDERED: AmLODIPine BESYLATE 5 MG TABLET PO SCH (09:00)
[2023-02-03] MEDS: DOCUSATE SODIUM 100 MG CAPSULE PO SCH ×2 (09:05→21:44)
[2023-02-03] MEDS: FAMOTIDINE 20 MG TABLET PO SCH (09:06)
[2023-02-03] MEDS: APIXABAN 2.5 MG TABLET PO SCH ×2 (09:06→21:44)
[2023-02-03] MEDS: AmLODIPine BESYLATE 5 MG TABLET PO SCH (09:06)
[2023-02-03] MEDS ORDERED: AmLODIPine BESYLATE 5 MG TABLET PO ONE (10:15)
[2023-02-03 10:43] LABS: THYROID STIMULATING HORMONE 2.48 uIU/mL (0.36-3.74)
[2023-02-03] MEDS: GuaiFENesin [SUGAR-FREE] 200 MG/10 ML SOLUTION UDCUP PO SCH (19:26)
[2023-02-03 20:07] LABS: GLUCOMETER DEV NAME(LOC) 6S.1B
[2023-02-03] MEDS ORDERED: DEXTRAN 70 0.1%/HYPROMELL 0.3% 0.9 ML OPHTHALMIC SOLUTION [PF] OU PRN (21:00)
[2023-02-04] VITALS (8 sets, daily range): BP systolic 103–170; BP diastolic 64–81; PULSE 65–91; RESP 18–20; TEMP 97.6–98.7
[2023-02-04] MEDS ORDERED: HydrALAZINE HCL 10 MG TABLET PO PRN (00:15)
[2023-02-04] MEDS: GuaiFENesin [SUGAR-FREE] 200 MG/10 ML SOLUTION UDCUP PO SCH ×4 (00:59→17:16)
[2023-02-04 01:52] LABS: GLUCOMETER DEV NAME(LOC) 6N.1
[2023-02-04 01:52] LABS: GLUCOMETER DEV NAME(LOC) 4E.2
[2023-02-04] MEDS: APIXABAN 2.5 MG TABLET PO SCH (08:07)
[2023-02-04] MEDS: FAMOTIDINE 20 MG TABLET PO SCH (08:08)
[2023-02-04] MEDS: DOCUSATE SODIUM 100 MG CAPSULE PO SCH (08:08)
[2023-02-04] MEDS ORDERED: AmLODIPine BESYLATE 5 MG TABLET PO SCH (09:00)
[2023-02-04] MEDS ORDERED: APIX2.5T PO (11:26)
[2023-02-04] MEDS ORDERED: AMLO-257 PO (11:26)
[2023-02-04] MEDS ORDERED: BENZ100C68 PO (11:26)
[2023-02-04] MEDS ORDERED: GUAI10 PO (11:26)
[2023-02-04 13:43] LABS: GLUCOMETER DEV NAME(LOC) 6S.2
[2023-02-04 13:43] LABS: GLUCOMETER DEV NAME(LOC) 4E.2
[2023-02-04 17:33] LABS: GLUCOMETER DEV NAME(LOC) 4E.2
[2023-02-04] MEDS ORDERED: ATORVASTATIN CALCIUM 40 MG TABLET PO SCH (21:00)
[2023-02-05] MEDS ORDERED: LEVOTHYROXINE SODIUM 100 MCG TABLET PO SCH (06:30)
[2023-02-05] MEDS ORDERED: ISOSORBIDE MONONITRATE 60 MG ER TABLET PO SCH (09:00)
[2023-02-05] MEDS ORDERED: CHOLECALCIFEROL (VIT D3) 1,000 UNITS [25 MCG] TABLET PO SCH (09:00)
== END 2023-02-04 18:32 | disposition home or self-care (01) | DRG 684 ==
LOC: EMS 14:02 → 6S 17:08
PROVIDERS: ADMIT Internal Medicine; ATTEND Internal Medicine
DX: N17.9 Acute kidney failure, unspecified (principal); N18.9 Chronic kidney disease, unspecified; Z20.822 Contact with and (suspected) exposure to COVID-19; E87.5 Hyperkalemia; D63.8 Anemia in other chronic diseases classified elsewhere; K21.9 Gastro-esophageal reflux disease without esophagitis; M10.9 Gout, unspecified; I12.9 Hypertensive chronic kidney disease with stage 1 through stage 4 chronic kidney disease, or unspecified chronic kidney disease; E11.22 Type 2 diabetes mellitus with diabetic chronic kidney disease; Z79.01 Long term (current) use of anticoagulants; Z87.891 Personal history of nicotine dependence; Z79.899 Other long term (current) drug therapy
CPT/HCPCS: 71045; 80048; 80053; 81003; 82962; 83605; 83690; 83880; 84443; 84484; 85025; 87804; 93005; 94640; 97116; 97161; 97530; 99285; J0456; J7030; J7040; Q9967; 36415-L1; 36415-TC; J7613